=== PATIENT | female | born 1960 | race Caucasian/White ===

== ENCOUNTER 2022-10-25 09:13 | Outpatient (CLI) | payer MEDICARE, SELFPAY ==
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
[2022-10-25 09:33] LABS: Estimated Glomerular Filt Rate > 60
== END 2022-10-25 09:14 | disposition home or self-care (01) ==
LOC: ANHIMG 09:16
PROVIDERS: PCP Internal Medicine; Visit Provider Nurse Practitioner Family
DX: R10.9 Unspecified abdominal pain (principal)
CPT/HCPCS: 74177; Q9967

== ENCOUNTER 2023-03-26 06:43 | Day surgery (SDC) | payer MEDICARE, SELFPAY ==
[2023-03-06 14:10] VITALS: BMI 23.9
--- NOTE | 2023-03-08 12:05 | SUR.PREOP ---
On 10/15 pt was in ER at [facility] for chest pain. ER work up showed positive troponins but EKG was not significantly abnormal. Pt underwent cardiac cath which showed no significant CAD, minimal plaquing, EF normal, suspected coronary spasm or embolus which may have resolved per notes from Dr. Roberts's office. Pt was put on plavix and Ranolazine at the time of incident. Pt reports was taken off Ranolazine due to not having chest pain and is still currently on plavix. Pt reports no chest pain or symptoms since incident to this RN. This information was relayed to Dr. Saldana during pre-op interview process for upcoming EGD/Colonoscopy. Per Dr. Saldana, okay for pt to have procedure at [facility] and no further pre-op testing needs to be performed.
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
[2023-03-26 08:12] VITALS: BP 117/75; PULSE 88; RESP 16; TEMP 36.9; O2SAT 98
[2023-03-26] MEDS: LACTATED RINGERS 1,000 ML 150 ML IV CONT (08:14)
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
[2023-03-26 09:02] VITALS: BP 125/72; PULSE 87; RESP 16; O2SAT 100
--- NOTE | 2023-03-26 09:05 | SUR.OPER ---
No specimen retrieved from colon. aware.
[2023-03-26 09:12] VITALS: BP 122/66; PULSE 73; RESP 16; O2SAT 100
[2023-03-26 09:22] VITALS: BP 123/62; PULSE 68; RESP 16; O2SAT 100
--- NOTE | 2023-03-26 09:23 | WPDANESPN ---
Anes - Prog Note Post-Op Date/Time: 03/26/23 09:23 Cardiovascular status: normal Respiratory status: normal Airway patency: baseline Mental status: baseline Post-Op hydration status: normal Vital Signs: Last Vital Signs Temp 36.9 C 03/26/23 08:12 Pulse 73 03/26/23 09:12 Resp 16 03/26/23 09:12 BP 122/66 03/26/23 09:12 Pulse Ox 100 03/26/23 09:12 O2 Del Method Room Air 03/26/23 09:12 Pain Score (VAS): 0 I/O: Intake & Output 03/25/23 03/26/23 03/26/23 23:59 07:59 15:59 Intake Total 300 Balance 300 Patient Feedback: Patient satisfied with anesthetic care.
--- NOTE | 2023-03-26 09:38 | SUR.PHASEII ---
SPOKE WITH DR HERNANDEZ, PT MAY RESUME PLAVIX TOMORROW. PT MADE AWARE.
== END 2023-03-26 09:50 | disposition home or self-care (01) ==
PROVIDERS: PCP Internal Medicine; Visit Provider Internal Medicine Gastroenterology
PROC: 0DJ08ZZ Inspection of Upper Intestinal Tract, Via Natural or Artificial Opening Endoscopic (ICD-10-PCS; CPT 43235; principal; 2023-03-26 08:30)
PROC: 0DJD8ZZ Inspection of Lower Intestinal Tract, Via Natural or Artificial Opening Endoscopic (ICD-10-PCS; CPT 45378; 2023-03-26 08:30)
DX: Z12.11 Encounter for screening for malignant neoplasm of colon (principal); D12.3 Benign neoplasm of transverse colon; K57.30 Diverticulosis of large intestine without perforation or abscess without bleeding; K64.8 Other hemorrhoids; K21.9 Gastro-esophageal reflux disease without esophagitis; R11.0 Nausea; K44.9 Diaphragmatic hernia without obstruction or gangrene
CPT/HCPCS: 45385; 43239

== ENCOUNTER 2023-03-26 07:00 | Outpatient (NON) | payer MEDICARE, SELFPAY | END 2023-03-26 07:01 | disposition home or self-care (01) | PROVIDERS: PCP Internal Medicine; Visit Provider Internal Medicine Gastroenterology | DX: K29.70 Gastritis, unspecified, without bleeding (principal); R11.2 Nausea with vomiting, unspecified | CPT/HCPCS: 88305 ==

== ENCOUNTER 2024-11-28 08:03 | Outpatient (CLI) | payer MEDICARE, SELFPAY ==
--- NOTE | ~2024-11-28 | MM_ITS ---
EXAMINATION: MM screening gil BI w elizabeth HISTORY: Screening TECHNIQUE: Craniocaudal and mediolateral oblique 3-D tomosynthesis images were obtained and synthetic 2-D images were generated. CAD analysis was submitted and interpreted. COMPARISON: 06/21/2017 and 02/10/2008. BREAST PARENCHYMAL COMPOSITION: Breast composed of scattered areas of fibroglandular density. FINDINGS: There is no evidence of suspicious mass, calcification, or architectural distortion to sugg est malignancy in either breast. There has been no suspicious interval change. IMPRESSION: 1. No mammographic evidence of malignancy. 2. Recommend routine screening mammography in one year. BI-RADS Category 1: Negative Reviewed, dictated and finalized at location B.
--- OUTSIDE RECORDS SUMMARY | 2024-11-28 08:06 | XMS_ITS | Clinical Summary ---
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 Active oxyCODONE-acetam inophen (PERCOCET) 5-325 mg per tabletIndication s:Pain Take 1 tablet by mouth every 8 (eight) hours as needed for pain Active rosuvastatin (CRESTOR) 20 mg tablet Take 1 tablet (20 mg total) by mouth daily Active citalopram (CeleXA) 10 mg tablet Take 1 tablet (10 mg total) by mouth daily Active aspirin 81 mg chewable tablet Take 1 tablet (81 mg total) by mouth daily 30 tablet 11 3 Active isosorbide mononitrate ER (IMDUR) 30 mg 24 hr tablet Take 1 tablet (30 mg total) by mouth daily 30 tablet 3 Active Active Problems Problem Noted Date Diagnosed Date Elevated troponin 10/03/2022 Overview (10/03/2022): Added automatically from request for surgery [id number] NSTEMI (non-ST elevated myocardial infarction) 0 10/03/2022 Medical History Medical History Date Comments Never smoked any substance Social History Tobacco Use Types Packs/Day Years Used Date Smoking Tobacco: Never Smokeless Tobacco: Never Tobacco Cessation:Counseling Given: Not Answered Personal Safety Answer Date Recorded Getting School Help Needed Not on file 10/03 Comments Unknown Sex and Gender Information Value Date Recorded Sex Assigned at Not on file Legal Sex Female 6:16 PM CDT Gender Identity Not on file Sexual Orientation Not on file Obstetrics History Last Filed Vital Signs Vital Sign Reading Time Taken Comments Blood Pressure 111/69 10/04/2022 12:20 PM CDT Pulse 81 10/04/2022 12:20 PM CDT Temperature 36.8 C (98.3 F) 10/04/2022 12:20 PM CDT Respiratory Rate 18 10/04/2022 12:20 PM CDT Oxygen Saturation 95% 10/04/2022 12:20 PM CDT Inhaled Oxygen Concentration - - Weight 59.4 kg (131 lb) 10/03/2022 8:00 PM CDT Height 160 cm (5' 2.99) 10/03/2022 8:00 PM CDT Body Mass Index 23.21 10/03/2022 8:00 PM CDT Plan of Treatment Health Maintenance Due Date Last Done Comments Breast Cancer Screening-Mammogram 1961 Cervical Cancer Screening 1961 Colon Cancer Screening-Colonoscopy 1961 Depression Screening 1961 Hepatitis C Screening 1961 Hepatitis B Screening 1979 Regular Well Visit/Exam 18-64 1979 Zoster Vaccine (1 of 2) 2011 Covid-19 Vaccine (3 - 2023-2 5 season) 2024 06/11/2021, 05/05/2021 Influenza Vaccine (Season Ended) 2025 DTaP/Tdap/Td Vaccine (2 - Td or Tdap) 03/21/2027 03/21/2017 Pneumococcal vaccine <65 Aged Out No longer eligible based on patient's age to complete this topic Medical Devices Implanted Type Area Customer Sales Representative Device Identifier Shelf Expiration Date Model / Serial / Lot Revision [employer] Mynxgrip 6-7fr Balloon Catheter Integrate Sealant Lock Latex Free [id number] - [id number] Implanted:Qty: 1 on 10/03/2022 by Amaury Byrne MD at [facility] 05/24/2024 [id number] / / [id number] Insurance MEDICARE ADVANTAGE [facility] MEDICARE Address: [place] [address] MEDICARE ADVANTAGE [facility] MEDICARE Address: [place] [address] MEDICARE ADVANTAGE Advance Directives For more information, please contact: [phone] * Full Code (Latest Code Status on File) Date Activated Date Inactivated Comments 10/03/2022 3:37 PM 10/04/2022 9:08 PM * Full Code Date Activated Date Inactivated Comments 10/03/2022 2:12 PM 10/03/2022 3:37 PM Care Teams Emergency Management Director Relationship Specialty Start Date End Date Snoido Dunn MD [address] [facility] [place] [place] [address] PCP - General Internal Medicine 10/04/22 Amaury Byrne MD [address] [place] [address] Consulting Physician Cardiovascular Disease 10/04/22
--- OUTSIDE RECORDS SUMMARY | 2024-11-28 08:06 | XMS_ITS | Referral Summary ---
Author Organization [facility] Address [address] [address] Care Team Providers Care System Developer Associate Manager Name Role Phone Amaury Byrne MD Unavailable Sonido Dunn MD Primary Care Provider Allergies Active Allergy Reactions Criticality Noted Date Comments Pregabalin Vision changes Medium 10/03/2022 Gabapentin Hallucinations Medium 10/03/2022 Medications levothyroxine (SYNTHROID) 175 mcg tablet Take 1 tablet (175 mcg total) by mouth rn office before breakfast Active oxyCODONE-acetam inophen (PERCOCET) 5-325 [...] (10/03/2022): Added automatically from request for surgery [id number] NSTEMI (non-ST elevated myocardial infarction) 0 10/03/2022 Social History Tobacco Use Types Packs/Day Years [...] on file Sexual Orientation Not on file Last Filed Vital Signs Vital Sign Reading [...] 10/03/2022 8:00 PM CDT Plan of Treatment Not on file Medical Devices Implanted Type Area Workshop Manager Device Identifier Shelf Expiration Date Model / Serial / Lot [facility] Mynxgrip 6-7fr Balloon Catheter Integrate Sealant Lock Latex Free [id number] - [id number] Implanted:Qty: 1 on 10/03/2022 by Amaury Byrne MD at [facility] 05/24/2024 [id number] / / [id number] Insurance [facility] MEDICARE ADVANTAGE [facility] MEDICARE ADVANTAGE Advance Directives For more information, please contact: [phone] * Full Code (Latest Code Status on File) Date Activated Date Inactivated Comments 10/03/2022 3:37 PM 10/04/2022 9:08 PM * Full Code Date Activated Date Inactivated Comments 10/03/2022 2:12 PM 10/03/2022 3:37 PM Care Teams System Developer Associate Manager Relationship Specialty Start Date End Date Sonido Dunn MD [address] [facility] [address] [place] [address] PCP - General Internal Medicine 10/04/22 Amaury Byrne MD [address] [place] [address] Consulting Physician Cardiovascular Disease 10/04/22
--- OUTSIDE RECORDS SUMMARY | 2024-11-28 08:06 | XMS_ITS | CONTINUITY OF CARE DOCUMENT ---
Author Name elvin oconnor Address Unknown Organization [facility] Address [address] [address] [place] [address] Phone [phone] Care Team Providers Care Computer Clerk Name Role Phone Armando GOODRICH, Lizbeth Unavailable RAIMUNDO ARSHAD MD Unavailable RAIMUNDO ARSHAD MD Unavailable [phone] PROBLEMS Condition Status Date Provider Notes NSTEMI--[place]- cath no sig. CAD 09/2022 active 10/24 Lizbeth Roberts MD Chest pain active Lizbeth Roberts MD Hyperlipidemia active Lizbeth Roberts MD GERD active Lizbeth Roberts MD Hypothyroidism active Lizbeth Roberts MD Dizziness active Lizbeth Roberts MD Nausea active Lizbeth Roberts MD Leg cramp, left active Kendall Ahmedzai Headache active Kendall Ahmedzai ENCOUNTERS Date Type Provider Location Encounter Diag nosis - In-person encounter Office Visit Lizbeth Roberts MD [place] - In-person encounter Office Visit Lizbeth Roberts MD [facility] Leg cramp, leftHeadache - In-person encounter Office Visit Lizbeth Roberts MD [place] - In-person encounter Office Visit Lizbeth Roberts MD [place] DizzinessNausea - In-person encounter Office Visit Lizbeth Roberts MD [place] NSTEMI--[place]- cath no sig. CAD hest painHyperlipidemiaGERDHypothyroidism VITAL SIGNS Date Observation Value Provider Body Mass Index (Ratio) 23.38 kg/m2 Will nevaehmelissa JonesMarlin pulse rate 87 /min Shy waterman blood pressure, cuff size regular Br chrissy Oden blood pressure, diastolic 80 mm[Hg] Br chrissy Oden blood pressure, systolic 125 mm[Hg] Floridalma Oden oxygen saturation, oximetry 97 % Shy Oden weight E&M 132 [lb_av] Shy Gill s height E&M 63 [in_i] Shy Gill s Body Mass Index (Ratio) 23.20 kg/m2 [facility] ntha Cranmer blood pressure, diastolic -1 mm[Hg] Li nkLogic blood pressure, systolic 99 mm[Hg] Sima kLogic blood pressure, diastolic 66 mm[Hg] Va lerie Lawson blood pressure, systolic 99 mm[Hg] Brittney sandhya Lawson respiratory rate E&M 12 /min Shahrzad Lawson weight E&M 131 [lb_av] Shahrzad Lawson pulse rate 97 /min Shahrzad Lawson oxygen saturation, oximetry 96 % Shahrzad Lawson blood pressure, cuff size regular Va lerie Lawson height E&M 63 [in_i] Shahrzad Lawson Body Mass Index (Ratio) 24.27 kg/m2 [facility] ntha Cranmer blood pressure, cuff size regular Fa avery Flores blood pressure, diastolic 98 mm[Hg] Alpa Flores blood pressure, systolic 110 mm[Hg] Amandeep [facility] pulse rate 99 /min Esther Ponca oxygen saturation, oximetry 98 % [facility] respiratory rate E&M 6 /min Esther de souza weight E&M 137 [lb_av] Esther Ponca height E&M 63 [in_i] Esther Ponca Body Mass Index (Ratio) 24.27 kg/m2 Dave ga Kiran blood pressure, diastolic 40 mm[Hg] Ave acuna Andrae blood pressure, systolic 118 mm[Hg] Any cydney Andrae pulse rate 80 /min Bridget Andrae weight E&M 137 [lb_av] Bridget Andrae height E&M 63 [in_i] Bridget Andrae blood pressure, cuff size large An armand Andrae oxygen saturation, oximetry 96 % Bridget Andrae Body Mass Index (Ratio) 23.03 kg/m2 Kendall Smithclement blood pressure, cuff size regular Ke rri Andrea blood pressure, diastolic 72 mm[Hg] Ke rri Andrea blood pressure, systolic 112 mm[Hg] Jorge Mendez oxygen saturation, oximetry 98 % Michelle Mendez respiratory rate E&M 12 /min Michelle puente pulse rate 95 /min Michelle Escobedo lder weight E&M 130 [lb_av] Michelle Escobedo lder height E&M 63 [in_i] Michelle Escobedo lder ALLERGIES Allergy Name Onset Date Reaction Criticality Status NEURONTIN High Criticality active LYRICA High Criticality active HISTORY OF MEDICATION USE Medication Status Instructions Dates Provider Indications Com ments buspirone 5 mg tablet active TAKE 1 TABLET BY MOUTH TWICE DAILY 1 Kendall Quinteros amlodipine 2.5 mg tablet active TAKE 1 TABLET BY MOUTH DAILY 6 Kendall Quinteros buspirone 5 mg tablet completed - 1 Love Leos amlodipine 5 mg tablet completed one pill once daily - 6 Kendall Quinteros Aspirin Childrens 81 mg tablet,chewable active one pill once daily Shahrzad Lawson buspirone 5 mg tablet completed Take 1 tablet by mouth twice a day 6 - 6 Shahrzad Lawson meclizine 25 mg tablet completed Take 1 tablet by mouth three times a day as needed 8 - 6 Shahrzad Lawson ranolazine 500 mg tablet extended release 12 hr completed TAKE 1 TABLET BY MOUTH TWICE A DAY - 8 Kendall Quinteros dicyclomine 20 mg tablet active as needed Shahrzad Lawson rosuvastatin 20 mg tablet active one pill once daily Shahrzad Lawson isosorbide mononitrate 30 mg tablet extended release 24 hr completed - 2 Kendall Quinteros citalopram 10 mg tablet completed TAKE 1 TABLET BY MOUTH EVERY DAY - 6 Esther Flores omeprazole 40 mg capsule,delayed release(DR/EC) active one pill once daily Shahrzad Lawson amlodipine 5 mg tablet completed TAKE 1 TABLET BY MOUTH DAILY - 6 Shahrzad Lawson clopidogrel 75 mg tablet completed TAKE 1 TABLET BY MOUTH EVERY DAY - 6 Shahrzad Lawson levothyroxine 150 mcg tablet active one pill once daily Shahrzad Lawson SOCIAL HISTORY Date Observation Value Provider smoking status Never smoker Kendall Quinteros smoking status Never smoker Kendall Quinteros smoking status Never smoker Kendall Quinteros smoking status Never smoker Bridget Abebe social history reviewed E&M revi ewed - no changes required Kendall Quinteros smoking status Never smoker Michelle puri social history reviewed E&M revi ewed - no changes required Kendall Ahmedzai FUNCTIONAL STATUS Date Observation Value Provider HRA, CV Assess/Plan, Angina (inactive) Management Plan continue current therapy Kendall Ahmedzai HRA, CV Assess/Plan, Angina (inactive) Management Plan continue current therapy Kendall Ahmedzai HRA, CV Assess/Plan, Angina (inactive) Management Plan continue current therapy Kendall Ahmedzai HRA, CV Assess/Plan, Angina (inactive) Management Plan continue current therapy Kendall Ahmedzai INSURANCE PROVIDERS Payer name Policy type / Coverage type [place] [employer] [employer] [facility] [facility] ADVANTAGE PLAN 2 (HMO-POS) Medicare [id number] ADVANCE DIRECTIVES Name Date DISCUSSED - NO DECISION MADE TREATMENT PLAN Date Name Performer [id number],S, Kendall Ahmedza i [id number],S, Kendall Ahmedza i [id number],S, Kendall Ahmedza i [id number],S, Kendall Ahmedza i [id number],S, Kendall Ahmedza i [id number],B, Kendall Ahmedza i [id number],S, Kendall Ahmedza i [id number],S, Kendall Ahmedza i [id number],S, Kendall Ahmedza i [id number],S, Kendall Ahmedza i [id number],S, Kendall Ahmedza i Cardiology: O rders: C omplete Echo ([id number]) Lizbeth Roberts MD Cardiology: H er updated medication list for this problem includes: Rosuvastatin 20 Mg Tablet (Rosuvastatin) ..... One pill once daily Lizbeth Roberts MD Cardiology: H er updated medication list for this problem includes: Levothyroxine 150 Mcg Tablet (Levothyroxine) ..... One pill once daily Lizbeth Roberts MD Cardiology:This visi t has been a part of the consistent, comprehensive, and ongoing management of the chronic medical condition(s) listed above for the patient. Orders: C omplete Echo ([id number]) Lizbeth Roberts MD Cardiology:This visi t has been a part of the consistent, comprehensive, and ongoing management of the chronic medical condition(s) listed above for the patient. Lizbeth Roberts MD Cardiology: H er updated medication list for this problem includes: Aspirin Childrens 81 Mg Tablet,chewable (Aspirin) ..... One pill once daily Kendall Quinteros Cardiology:hold statin and monit or sxs Kendall Quinteros Cardiology Kendall Quinteros Cardiology: H er updated medication list for this problem includes: Rosuvastatin 20 Mg Tablet (Rosuvastatin) ..... One pill once daily Kendall Quinteros Cardiology Kendall Quinteros Cardiology: H er updated medication list for this problem includes: Levothyroxine 150 Mcg Tablet (Levothyroxine) ..... One pill once daily Kendall Quinteros Cardiology Kendall Quinteros Cardiology Kendall Quinteros Cardiology Kendall Quinteros Cardiology: H er updated medication list for this problem includes: Dicyclomine 20 Mg Tablet (Dicyclomine) Omeprazole 40 Mg Capsule,delayed Release(dr/ec) (Omeprazole) Kendall Quinteros Cardiology: H er updated medication list for this problem includes: Levothyroxine 175 Mcg Tablet (Levothyroxine) Kendall Quinteros Cardiology: H er updated medication list for this problem includes: Rosuvastatin 20 Mg Tablet (Rosuvastatin) Kendall Marsi Cardiology Kendall Ahmedzai Cardiology Kendall Ahmedzai Cardiology Kendall Ahmedzai Cardiology Kendall Ahmedzai Cardiology Kendall Ahmedzai Cardiology Kendall Ahmedzai Cardiology Kendall Ahmedzai Cardiology Kendall Ahmedzai Cardiology Kendall Ahmedzai Cardiology Kendall Ahmedzai Cardiology Kendall Ahmedzai Cardiology Kendall Ahmedzai Date Name Complete Echo HISTORY OF PROCEDURES Procedure Date Procedure Name Provider Procedure Notes S tatus Complex e/m visit add on Lizbeth Roberts MD completed Complex e/m visit add on Lizbeth Roberts MD completed EKG Lizbeth Roberts MD completed EKG Lizbeth Roberts MD completed
--- OUTSIDE RECORDS SUMMARY | 2024-11-28 08:07 | XMS_ITS | Data Portability ---
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 ng/mL Not Available [facility] (Lab) [address] [place], [address], 08/31/2023 13:22:51 08/31/19 24 08/31/2023 URINE DRUG SCREE N benzodiazepi burt NEGATI VE Benzo diaze pine cut off 200 ng/mL Not Available [facility] (Lab) [address] [place], [address], 08/31/2023 13:22:51 08/31/19 24 08/31/2023 URINE DRUG SCREE N cocaine NEGATI VE Cocai ne metab olite cut off 150 ng/mL Not Available [facility] (Lab) [address] [place], [address], 08/31/2023 13:22:51 08/31/19 24 08/31/2023 URINE DRUG SCREE N fentanyl NEGATI VE Fenta nyl cut off 1.0 ng/mL Not Available [facility] (Lab) [address] [place], [address], 08/31/2023 13:22:51 08/31/19 24 08/31/2023 URINE DRUG SCREE N methadone NEGATI VE Metha done cutof f 300 ng/mL . Not Available [facility] (Lab) [address] [place], [address], 08/31/2023 13:22:51 08/31/19 24 08/31/2023 URINE DRUG SCREE N opiates NEGATI VE Opiat e cut off 300 ng/mL Not Available [facility] (Lab) [address] [place], [address], 08/31/2023 13:22:51 08/31/19 24 08/31/2023 URINE DRUG SCREE N oxycodone POSITI VE abnormal Oxyco done cut off 100 ng/mL Not Available [facility] (Lab) [address] [place], [address], 08/31/2023 13:22:51 08/31/19 24 08/31/2023 URINE DRUG SCREE N phencyclidin e NEGATI VE PCP cut off 25 ng/mL Not Available [facility] (Lab) [address] [place], [address], 08/31/2023 13:22:51 08/31/19 24 08/31/2023 URINE DRUG SCREE N marijuana POSITI VE abnormal Marij uana cut off 50 ng/mL ANY POSIT LALITHA RESUL TS REPOR SRINI ARE UNCON FIRME D, AND SUCH, SHOUL D BE USED FOR MEDIC AL TREAT MENT PURPO SES ONLY. Not Available [facility] (Lab) [address] [place], [address], 08/31/2023 13:22:51 08/31/19 24 08/31/2023 T4 FREE free T4 1.41 NG/dL 0.78-2 .19 Not Available [facility] (Lab) [address] [place], [address], 08/31/2023 13:27:56 08/31/19 24 08/31/2023 COMPR EHENS LALITHA METAB OLIC PANEL sodium 140 mmol/ L 137-14 5 Not Available [facility] (Lab) [address] [place], [address], 08/31/2023 13:31:11 08/31/19 24 08/31/2023 COMPR EHENS LALITHA METAB OLIC PANEL potassium 4.1 mmol/ L 3.5-5. 1 Not Available [facility] (Lab) [address] [place], [address], 08/31/2023 13:31:11 08/31/19 24 08/31/2023 COMPR EHENS LALITHA METAB OLIC PANEL chloride 108 mmol/ L 98-107 high Not Available [facility] (Lab) [address] [place], [address], 08/31/2023 13:31:11 08/31/19 24 08/31/2023 COMPR EHENS LALITHA METAB OLIC PANEL carbon dioxide 27 mmol/ L 22-30 Not Available [facility] (Lab) [address] [place], [address], 08/31/2023 13:31:11 08/31/19 24 08/31/2023 COMPR EHENS LALITHA METAB OLIC PANEL anion gap 9.1 mmol/ L 14-22 low Not Available [facility] (Lab) [address] [place], [address], 08/31/2023 13:31:11 08/31/19 24 08/31/2023 COMPR EHENS LALITHA METAB OLIC PANEL glucose 94 mg/dL 70-99 Not Available [facility] (Lab) [address] [place], [address], 08/31/2023 13:31:11 08/31/19 24 08/31/2023 COMPR EHENS LALITHA METAB OLIC PANEL BUN 17 mg/dL 8-19 Not Available [facility] (Lab) [address] [place], [address], 08/31/2023 13:31:11 08/31/19 24 08/31/2023 COMPR EHENS LALITHA METAB OLIC PANEL creatinine 0.57 mg/dL 0.66-1 .25 low Not Available [facility] (Lab) [address] [place], [address], 08/31/2023 13:31:11 08/31/19 24 08/31/2023 COMPR EHENS LALITHA METAB OLIC PANEL GFR >60 Refer ence Range : [place] GFR Healt hy Adult : >60 mL/mi n/1.7 3 m2 Chron ic Kidne y Disea se: 15-60 mL/mi n/1.7 3 m2 Kidne y Failu re: <15/m L/min /1.73 m2 www.n iddk. nih.g ov The MDRD study equat ion has not been valid ated in child meir <18 years of age; pregn ant women ; the elder ly >85 years of age; or in some racia l or ethni c subgr oups, such as Hispa nics. Outsi de the valid ated colin eters , estim ated GFR is less accur ate, requi ring clini suzie judgm ent on a case- by-ca se basis . Clini suzie inter preta tion for other races and ages must be made by the clini noa. The MDRD study equat ion has not been valid ated for the evalu ation of serum creat inine relat ed to nutri shireen l statu s or medic ation usage . For perso ns <18 years of age, a pedia tric GFR calcu lator is avail able on the [facility] websi te: https ://edil w.elisabet ayers.o rg/pr marisoless brettal s/kdo qi/gf r_cal culat or Not Available [facility] (Lab) [address] [place], [address], 08/31/2023 13:31:11 08/31/19 24 08/31/2023 COMPR EHENS LALITHA METAB OLIC PANEL alkaline phosphatase 93 U/L 38-126 Not Available [facility] (Lab) [address] [place], [address], 08/31/2023 13:31:11 08/31/19 24 08/31/2023 COMPR EHENS LALITHA METAB OLIC PANEL alanine aminotransfe rase 24 U/L 0-35 Not Available [facility] (Lab) [address] [place], [address], 08/31/2023 13:31:11 08/31/19 24 08/31/2023 COMPR EHENS LALITHA METAB OLIC PANEL aspartate aminotransfe rase 33 U/L 15-37 Not Available [facility] (Lab) [address] [place], [address], 08/31/2023 13:31:11 08/31/19 24 08/31/2023 COMPR EHENS LALITHA METAB OLIC PANEL bilirubin, total 0.50 mg/dL 0.20-1 .30 Not Available [facility] (Lab) [address] [place], [address], 08/31/2023 13:31:11 08/31/19 24 08/31/2023 COMPR EHENS LALITHA METAB OLIC PANEL calcium 9.7 mg/dL 8.4-10 .2 Not Available [facility] (Lab) [address] [place], [address], 08/31/2023 13:31:11 08/31/19 24 08/31/2023 COMPR EHENS LALITHA METAB OLIC PANEL total protein 6.5 g/dL 6.3-8. 2 Not Available [facility] (Lab) [address] [place], [address], 08/31/2023 13:31:11 08/31/19 24 08/31/2023 COMPR EHENS LALITHA METAB OLIC PANEL albumin 4.1 g/dL 3.4-5. 0 Not Available [facility] (Lab) [address] [place], [address], 08/31/2023 13:31:11 03/08/08/31/2023 COMPR EHENS LALITHA METAB OLIC PANEL globulin 2.4 g/dL 2.6-4. 2 low Not Available [facility] (Lab) [address] [place], [address], 08/31/2023 13:31:11 08/31/19 24 08/31/2023 COMPR EHENS LALITHA METAB OLIC PANEL A/G ratio 1.7 ratio 1.0-2. 0 Not Available [facility] (Lab) [address] [place], [address], 08/31/2023 13:31:11 08/31/19 24 08/31/2023 LIPID PANEL cholesterol 130 mg/dL 140-19 9 low NIH BALTAZAR NSUS RECOM MENDA TION FOR MINI STERO L: ADULT CHILD LOW RISK: <200 <170 BORDE RLINE : <200- 239 ----- HIGH RISK: >240 >200 Not Available [facility] (Lab) [address] [place], [address], 08/31/2023 13:31:14 08/31/19 24 08/31/2023 LIPID PANEL triglyceride s 83 mg/dL 0-150 NIH BALTAZAR NSUS REPOR T RECOM MENDA TION FOR TRIGL YCERI SUZIE: ADULT CHILD LOW RISK: <150 ----- BODER LINE: 150-1 99 ----- HIGH RISK: >200 ----- Not Available [facility] (Lab) [address] [place], [address], 08/31/2023 13:31:14 08/31/19 24 08/31/2023 LIPID PANEL HDL cholesterol 59 mg/dL 40- Not Available [facility] (Lab) [address] [place], [address], 08/31/2023 13:31:14 08/31/19 24 08/31/2023 LIPID PANEL LDL cholesterol, calculated 54 mg/dL 0-130 NIH BALTAZAR NSUS REPOR T RECOM MENDA TIONS FOR LDL: ADULT CHILD LOW RISK <130 <110 (OPTI MAL LDL) <100 ----- BORDE RLINE : 130-1 59 ----- HIGH RISK: >160 >130 A TRIGL YCERI DE RESUL T >400 INVAL IDATE S THE CALCU LATIO N FOR LDL FRACT IONAT ION - THE LDL RESUL T WILL NOT BE REPOR SRINI. Not Available [facility] (Lab) [address] [place], [address], 08/31/2023 13:31:14 08/31/19 24 08/31/2023 TSH thyroid-stim ulating hormone <0.015 uIU/m L 0.465- 4.680 low Not Available [facility] (Lab) [address] [place], [address], 08/31/2023 13:39:41 03/21/20 24 03/21/2024 CREAT INE KINAS E/CPK TOTAL creatine kinase 93 U/L 30-135 Not Available [facility] (Lab) [address] [place], [address], 03/21/2024 12:12:08 03/21/20 24 03/21/2024 LIPID PANEL cholesterol 287 mg/dL 140-19 9 high NIH BALTAZAR NSUS RECOM MENDA TION FOR MINI STERO L: ADULT CHILD LOW RISK: <200 <170 BORDE RLINE : <200- 239 ----- HIGH RISK: >240 >200 Not Available [facility] (Lab) [address] [place], [address], 03/21/2024 12:12:19 03/21/20 24 03/21/2024 LIPID PANEL triglyceride s 131 mg/dL 0-150 NIH BALTAZAR NSUS REPOR T RECOM MENDA TION FOR TRIGL YCERI SUZIE: ADULT CHILD LOW RISK: <150 ----- BODER LINE: 150-1 99 ----- HIGH RISK: >200 ----- Not Available [facility] (Lab) [address] [place], [address], 03/21/2024 12:12:19 03/21/20 24 03/21/2024 LIPID PANEL HDL cholesterol 61 mg/dL 40- Not Available [facility] (Lab) [address] [place], [address], 03/21/2024 12:12:19 03/21/20 24 03/21/2024 LIPID PANEL LDL cholesterol, calculated 200 mg/dL 0-130 high NIH BALTAZAR NSUS REPOR T RECOM MENDA TIONS FOR LDL: ADULT CHILD LOW RISK <130 <110 (OPTI MAL LDL) <100 ----- BORDE RLINE : 130-1 59 ----- HIGH RISK: >160 >130 A TRIGL YCERI DE RESUL T >400 INVAL IDATE S THE CALCU LATIO N FOR LDL FRACT IONAT ION - THE LDL RESUL T WILL NOT BE REPOR SRINI. Not Available [facility] (Lab) [address] [place], [address], 03/21/2024 12:12:19 03/21/20 24 03/21/2024 COMPR EHENS LALITHA METAB OLIC PANEL sodium 139 mmol/ L 137-14 5 Not Available [facility] (Lab) [address] [place], [address], 03/21/2024 12:12:28 03/21/20 24 03/21/2024 COMPR EHENS LALITHA METAB OLIC PANEL potassium 4.0 mmol/ L 3.5-5. 1 Not Available [facility] (Lab) [address] [place], [address], 03/21/2024 12:12:28 03/21/20 24 03/21/2024 COMPR EHENS LALITHA METAB OLIC PANEL chloride 110 mmol/ L 98-107 high Not Available [facility] (Lab) [address] [place], [address], 03/21/2024 12:12:28 03/21/20 24 03/21/2024 COMPR EHENS LALITHA METAB OLIC PANEL carbon dioxide 25 mmol/ L 22-30 Not Available [facility] (Lab) [address] [place], [address], 03/21/2024 12:12:28 03/21/20 24 03/21/2024 COMPR EHENS LALITHA METAB OLIC PANEL anion gap 8.0 mmol/ L 14-22 low Not Available [facility] (Lab) [address] [place], [address], 03/21/2024 12:12:28 03/21/20 24 03/21/2024 COMPR EHENS LALITHA METAB OLIC PANEL glucose 99 mg/dL 70-99 Not Available [facility] (Lab) [address] [place], [address], 03/21/2024 12:12:28 03/21/20 24 03/21/2024 COMPR EHENS LALITHA METAB OLIC PANEL BUN 16 mg/dL 8-19 Not Available [facility] (Lab) [address] [place], [address], 03/21/2024 12:12:28 03/21/20 24 03/21/2024 COMPR EHENS LALITHA METAB OLIC PANEL creatinine 0.66 mg/dL 0.66-1 .25 Not Available [facility] (Lab) [address] [place], [address], 03/21/2024 12:12:28 03/21/20 24 03/21/2024 COMPR EHENS LALITHA METAB OLIC PANEL GFR >60 Refer ence Range : [place] GFR Healt hy Adult : >60 mL/mi n/1.7 3 m2 Chron ic Kidne y Disea se: 15-60 mL/mi n/1.7 3 m2 Kidne y Failu re: <15/m L/min /1.73 m2 www.n iddk. nih.g ov The MDRD study equat ion has not been valid ated in child meir <18 years of age; pregn ant women ; the elder ly >85 years of age; or in some racia l or ethni c subgr oups, such as Hispa nics. Outsi de the valid ated colin eters , estim ated GFR is less accur ate, requi ring clini suzie judgm ent on a case- by-ca se basis . Clini suzie inter preta tion for other races and ages must be made by the clini noa. The MDRD study equat ion has not been valid ated for the evalu ation of serum creat inine relat ed to nutri shireen l statu s or medic ation usage . For perso ns <18 years of age, a pedia tric GFR calcu lator is avail able on the [facility] websi te: https ://edil w.elisabet ayers.o rg/pr ofess ional s/kdo qi/gf r_cal culat or Not Available [facility] (Lab) [address] [place], [address], 03/21/2024 12:12:28 03/21/20 24 03/21/2024 COMPR EHENS LALITHA METAB OLIC PANEL alkaline phosphatase 101 U/L 38-126 Not Available [facility] (Lab) [address] [place], [address], 03/21/2024 12:12:28 03/21/20 24 03/21/2024 COMPR EHENS LALITHA METAB OLIC PANEL alanine aminotransfe rase 30 U/L 0-35 Not Available [facility] (Lab) [address] [place], [address], 03/21/2024 12:12:28 03/21/20 24 03/21/2024 COMPR EHENS LALITHA METAB OLIC PANEL aspartate aminotransfe rase 40 U/L 15-37 high Not Available [facility] (Lab) [address] [place], [address], 03/21/2024 12:12:28 03/21/20 24 03/21/2024 COMPR EHENS LALITHA METAB OLIC PANEL bilirubin, total 0.50 mg/dL 0.20-1 .30 Not Available [facility] (Lab) [address] [place], [address], 03/21/2024 12:12:28 03/21/20 24 03/21/2024 COMPR EHENS LALITHA METAB OLIC PANEL calcium 9.6 mg/dL 8.4-10 .2 Not Available [facility] (Lab) [address] [place], [address], 03/21/2024 12:12:28 03/21/20 24 03/21/2024 COMPR EHENS LALITHA METAB OLIC PANEL total protein 7.1 g/dL 6.3-8. 2 Not Available [facility] (Lab) [address] [place], [address], 03/21/2024 12:12:28 03/21/20 24 03/21/2024 COMPR EHENS LALITHA METAB OLIC PANEL albumin 4.4 g/dL 3.0-4. 4 Not Available [facility] (Lab) [address] [place], [address], 03/21/2024 12:12:28 03/21/20 24 03/21/2024 COMPR EHENS LALITHA METAB OLIC PANEL globulin 2.7 g/dL 2.6-4. 2 Not Available [facility] (Lab) [address] [place], [address], 03/21/2024 12:12:28 03/21/20 24 03/21/2024 COMPR EHENS LALITHA METAB OLIC PANEL A/G ratio 1.6 ratio 1.0-2. 0 Not Available [facility] (Lab) [address] [place], [address], 03/21/2024 12:12:28 03/21/20 24 03/21/2024 T4 FREE free T4 1.34 NG/dL 0.78-2 .19 Not Available [facility] (Lab) [address] [place], [address], 03/21/2024 12:32:40 03/21/20 24 03/21/2024 TSH thyroid-stim ulating hormone 0.088 uIU/m L 0.465- 4.680 low Not Available [facility] (Lab) [address] [place], [address], 03/21/2024 12:37:30 09/18/19 25 09/17/2024 LIPID PANEL , [place] cholesterol, total 166 mg/dL <200 normal Not Available [address] [address] [place], [address], 09/17/2024 21:39:15 09/18/19 25 09/17/2024 LIPID PANEL , [place] HDL cholesterol 66 mg/dL > or = 50 normal Not Available [facility] [address], [address], 09/17/2024 21:39:15 09/18/19 25 09/17/2024 LIPID PANEL , [place] triglyceride s 90 mg/dL <150 normal Not Available [facility] [address], [address], 09/17/2024 21:39:15 09/18/19 25 09/17/2024 LIPID PANEL , [place] LDL-choleste rol 82 mg/dL _(suzie c) normal Refer ence range : <100 Yassine able range <100 mg/dL for prima ry preve ntion ; <70 mg/dL for patie nts with CHD or diabe tic patie nts with > or = 2 CHD risk facto rs. LDL-C is now calcu lated using the Catrina farah-Hop gloria gloria n, which is a valid ated novel sameera davis than the Fried elba equat ion in the estim ation of LDL-C . Catrina farah SS et al. BETTY. 2013; 310(1 9): 2061- 2068 (http ://ed ucati on.Qu estDi [employer]. com/f aq/FA Q164) Not Available [address] [address] [place], [address], 09/17/2024 21:39:15 09/18/1909/17/2024 LIPID PANEL , [place] chol/HDLC ratio 2.5 (calc ) <5.0 normal Not Available [address], [address], 09/17/2024 21:39:15 09/18/1909/17/2024 LIPID PANEL , [place] non HDL cholesterol 100 mg/dL _(suzie c) <130 normal For patie nts with diabe francia plus 1 major ASCVD risk facto r, treat ing to a non-H DL-C goal of <100 mg/dL (LDL- C of <70 mg/dL ) is consi dered a thera peuti c optio n. Not Available [address], [address], 09/17/2024 21:39:15 09/18/1909/17/2024 COMPR EHENS LALITHA METAB OLIC PANEL glucose 98 mg/dL 65-99 normal Fasti ng refer ence inter lorrie Not Available [address], [address], 09/17/2024 21:39:16 09/18/1909/17/2024 COMPR EHENS LALITHA METAB OLIC PANEL urea nitrogen (BUN) 15 mg/dL 7-25 normal Not Available [address], [address], 09/17/2024 21:39:16 09/18/1909/17/2024 COMPR EHENS LALITHA METAB OLIC PANEL creatinine 0.63 mg/dL 0.50-1 .05 normal Not Available [address], [address], 09/17/2024 21:39:16 09/18/19 25 09/17/2024 COMPR EHENS LALITHA METAB OLIC PANEL eGFR 100 mL/mi n/1.7 3m2 > or = 60 normal Not Available [address], [address], 09/17/2024 21:39:16 09/18/19 25 09/17/2024 COMPR EHENS LALITHA METAB OLIC PANEL BUN/creatini ne ratio SEE NOTE: (calc ) 6-22 Not Repor srini: BUN and Creat inine are withi n refer ence range . Not Available [address], [address], 09/17/2024 21:39:16 09/18/19 25 09/17/2024 COMPR EHENS LALITHA METAB OLIC PANEL sodium 142 mmol/ L 135-14 6 normal Not Available [address], [address], 09/17/2024 21:39:16 09/18/19 25 09/17/2024 COMPR EHENS LALITHA METAB OLIC PANEL potassium 4.0 mmol/ L 3.5-5. 3 normal Not Available [address], [address], 09/17/2024 21:39:16 09/18/19 25 09/17/2024 COMPR EHENS LALITHA METAB OLIC PANEL chloride 105 mmol/ L 98-110 normal Not Available [address], [address], 09/17/2024 21:39:16 09/18/19 25 09/17/2024 COMPR EHENS LALITHA METAB OLIC PANEL carbon dioxide 29 mmol/ L 20-32 normal Not Available [address], [address], 09/17/2024 21:39:16 09/18/19 25 09/17/2024 COMPR EHENS LALITHA METAB OLIC PANEL calcium 9.8 mg/dL 8.6-10 .4 normal Not Available [address], [address], 09/17/2024 21:39:16 09/18/19 25 09/17/2024 COMPR EHENS LALITHA METAB OLIC PANEL protein, total 6.9 g/dL 6.1-8. 1 normal Not Available [address], [address], 09/17/2024 21:39:16 09/18/19 25 09/17/2024 COMPR EHENS LALITHA METAB OLIC PANEL albumin 4.6 g/dL 3.6-5. 1 normal Not Available [address], [address], 09/17/2024 21:39:16 09/18/19 25 09/17/2024 COMPR EHENS LALITHA METAB OLIC PANEL globulin 2.3 g/dL_ (calc ) 1.9-3. 7 normal Not Available [address], [address], 09/17/2024 21:39:16 09/18/19 25 09/17/2024 COMPR EHENS LALITHA METAB OLIC PANEL albumin/glob ulin ratio 2.0 (calc ) 1.0-2. 5 normal Not Available [address], [address], 09/17/2024 21:39:16 09/18/19 25 09/17/2024 COMPR EHENS LALITHA METAB OLIC PANEL bilirubin, total 0.4 mg/dL 0.2-1. 2 normal Not Available [address], [address], 09/17/2024 21:39:16 09/18/19 25 09/17/2024 COMPR EHENS LALITHA METAB OLIC PANEL alkaline phosphatase 88 U/L 37-153 normal Not Available [address], [address], 09/17/2024 21:39:16 09/18/19 25 09/17/2024 COMPR EHENS LALITHA METAB OLIC PANEL AST 24 U/L 10-35 normal Not Available [address], [address], 09/17/2024 21:39:16 09/18/19 25 09/17/2024 COMPR EHENS LALITHA METAB OLIC PANEL ALT 20 U/L 6-29 normal Not Available [address], [address], 09/17/2024 21:39:16 09/18/19 25 09/17/2024 CBC (INCL UDES DIFF/ PLT) white blood cell count 10.8 thous and/u L 3.8-10 .8 normal Not Available [address], [address], 09/17/2024 21:39:18 09/18/19 25 09/17/2024 CBC (INCL UDES DIFF/ PLT) red blood cell count 4.85 linda on/uL 3.80-5 .10 normal Not Available [address], [address], 09/17/2024 21:39:18 09/18/19 25 09/17/2024 CBC (INCL UDES DIFF/ PLT) hemoglobin 15.3 g/dL 11.7-1 5.5 normal Not Available [address], [address], 09/17/2024 21:39:18 09/18/19 25 09/17/2024 CBC (INCL UDES DIFF/ PLT) hematocrit 46.4 % 35.0-4 5.0 high Not Available [address], [address], 09/17/2024 21:39:18 09/18/19 09/17/2024 CBC (INCL UDES DIFF/ PLT) MCV 95.7 fL 80.0-1 00.0 normal Not Available [address], [address], 09/17/2024 21:39:18 09/18/1909/17/2024 CBC (INCL UDES DIFF/ PLT) MCH 31.5 pg 27.0-3 3.0 normal Not Available [address], [address], 09/17/2024 21:39:18 09/18/1909/17/2024 CBC (INCL UDES DIFF/ PLT) MCHC 33.0 g/dL 32.0-3 6.0 normal For adult s, a sligh t decre ase in the calcu lated MCHC value (in the range of 30 to 32 g/dL) is most likel y not clini lynn signi dexter t; jaky er, it shoul d be inter prete d with cauti on in [facility] n with other red cell colin eters and the patie nt's clini suzie condi tion. Not Available [address], [address], 09/17/2024 21:39:18 09/18/1909/17/2024 CBC (INCL UDES DIFF/ PLT) RDW 12.0 % 11.0-1 5.0 normal Not Available [address], [address], 09/17/2024 21:39:18 09/18/1909/17/2024 CBC (INCL UDES DIFF/ PLT) platelet count 333 thous and/u L 140-40 0 normal Not Available [address], [address], 09/17/2024 21:39:18 09/18/1909/17/2024 CBC (INCL UDES DIFF/ PLT) MPV 10.3 fL 7.5-12 .5 normal Not Available [address] [place], [address], 09/17/2024 21:39:18 09/18/19 25 09/17/2024 CBC (INCL UDES DIFF/ PLT) absolute neutrophils 8273 cells /uL 1500-7 800 high Not Available [address], [address], 09/17/2024 21:39:18 09/18/19 25 09/17/2024 CBC (INCL UDES DIFF/ PLT) absolute lymphocytes 1566 cells /uL 850-39 00 normal Not Available [address], [address], 09/17/2024 21:39:18 09/18/19 25 09/17/2024 CBC (INCL UDES DIFF/ PLT) absolute monocytes 756 cells /uL 200-95 0 normal Not Available [address], [address], 09/17/2024 21:39:18 09/18/19 25 09/17/2024 CBC (INCL UDES DIFF/ PLT) absolute eosinophils 130 cells /uL 15-500 normal Not Available [address], [address], 09/17/2024 21:39:18 09/18/19 25 09/17/2024 CBC (INCL UDES DIFF/ PLT) absolute basophils 76 cells /uL 0-200 normal Not Available [address], [address], 09/17/2024 21:39:18 09/18/19 25 09/17/2024 CBC (INCL UDES DIFF/ PLT) neutrophils 76.6 % normal Not Available [address], [address], 09/17/2024 21:39:18 09/18/19 25 09/17/2024 CBC (INCL UDES DIFF/ PLT) lymphocytes 14.5 % normal Not Available [address], [address], 09/17/2024 21:39:18 09/18/19 25 09/17/2024 CBC (INCL UDES DIFF/ PLT) monocytes 7.0 % normal Not Available [address], [address], 09/17/2024 21:39:18 09/18/19 25 09/17/2024 CBC (INCL UDES DIFF/ PLT) eosinophils 1.2 % normal Not Available [address], [address], 09/17/2024 21:39:18 09/18/19 25 09/17/2024 CBC (INCL UDES DIFF/ PLT) basophils 0.7 % normal Not Available [address], [address], 09/17/2024 21:39:18 09/18/19 25 09/17/2024 T4, FREE T4, free 2.3 NG/dL 0.8-1. 8 high Not Available [address], [address], 09/17/2024 21:39:19 09/18/19 25 09/17/2024 TSH TSH 0.05 mIU/L 0.40-4 .50 low Not Available 93 [address], [address], 09/17/2024 21:39:20 03/15/20 23 03/15/2023 DEXA, axial skele ton [facility] [address] [address] Patien t Name: DEBBIE CUTLER Access ion #: [id number] Sex: F : 1959 4 Dictat ed By: Emery steven Attend ing Physic arely: EVANS DUNN CE Orderi Physic arely: VEANS DUNN CE Exam Date: 2022 09:34 AM Exam Name: XR DEXA-H IPS PELVIS SPINE Admitt ing Diagno sis(es ): CLINIC AL HISTOR Y: Postme nopaus al screen ing for osteop orosis . TECHNI QUE: The study was perfor med using a Directa Plus Unit. Lumbar spine and proxim al femora l evalua tions were evalua srini in the fronta l projec tions. COMPAR NIKHIL: Prior DEXA scan dated 021. FINDIN GS: L1-L4 demons trates a bone minera l densit y of 0.978 g/cm2 with a T-scor e of -1.7, consis tent with osteop enia. There has been a 2.6% interv al increa se in bone minera l densit y in the lumbar spine compar ed to the prior exam. Left femora l neck evalua tion demons trates a bone minera l densit y of 0.821 g/cm2 with a T-scor e of -1.6, consis tent with osteop enia. Right femora l neck evalua tion demons trates a bone minera l densit y of 0.791 g/cm2 with a T-scor e of -1.8 within normal limits . There has been an interv al 0.2% decrea se in total mean proxim al femora l bone minera l densit y compar ed to the prior exam. Estima srini total body fat is 42.8%. BMI is 23.9. IMPRES JOSH: Bone minera l densit y is consis tent with osteop enia based on lowest T score as descri bed above. Electr onical ly Signed by: Emery steven at 2022 12:19: 32 PM Page 1 [email or web address] [facility] [address] [place], [address], 03/15/2023 17:41:28 03/15/20 23 03/15/2023 scree deborah breas t tejas, bilat [facility] [address] [place] [address] [place] t Name: DEBBIE CUTLER Access ion #: [id number] Sex: F : 1959 4 Dictat ed By: Miguel Oh Attend ing Physic arely: EVANS DUNN CE Orderi ng Physic arely: EVANS DUNN CE Exam Date: 2022 09:34 AM Exam Name: MG SCRN BREAST TEJAS BILAT Admitt ing Diagno sis(es ): Compar nikhil: 1 Screen ing mammog alexandria Techni que: Bilate ral CC and latera l images obtain ed are fulfil led with bilate ral tomosy nsthes is. Breast compos ition: Hetero genous ly dense. Digita l techni que per standa rd protoc ol Findin gs: No suspic ious mass or calcif icatio n is identi fied. No ronda ectura l distor tion is seen. There are no abnorm alitie s around the nipple areola r comple x. No adenop athy is apprec iated. . Conclu josh: No mammog raphic eviden ce of malign albert. Mammog raphic assess ment catego ry: BI-RAD S catego ry: 1 Negati ve A letter with the result s of this mammog alexandria was mailed to the patides[place] t Electr onical ly Signed by: Miguel Oh at 2022 12:28: 18 PM Page [address] (Imaging) [address] [place], [address], 03/15/2023 17:41:53 09/17/19 25 09/16/2024 US, echoc ardio gram No observ ation record ed. [address] [facility] [address] [address], [place], [address], 09/23/2024 10:37:41 Result Notes None recorded. Problems Name Problem SNOMED Code Status Onset Date Resolution Date Notes Provider Name and Address Organization Details Recorded Time Nodular fasciitis 370206058 Active 2022 Tana Begum CMA null, [facility] 3 10:56:55 Essential hypertens ion 24503073 Active 2022 Raimundo Dunn MD [address] [facility] [facility], [place], [address] , [facility] 3 10:47:46 Fractured nasal bones 355343723 Active 2022 Raimundo Dunn MD [address] [facility], [place], [address] , [facility] 3 16:48:30 Senile osteoporo sis 46896397 Active 2022 Ada Aaron cuellar, [facility] 3 10:46:53 Spinal enthesopa thy 66572959 Active Not Available [facility] 3 03:21:52 Renewal of prescript ion Active 2021 Not Available [facility] 3 03:21:52 Irritable bowel syndrome 29961022 Active Not Available [facility] 3 03:21:52 Disorder of sacrum 07423230 Completed Not Available [facility] 3 03:21:52 Hyperchol esterolem ia 87086374 Active 2016 Not Available [facility] 3 03:21:52 Acquired trigger finger 8691646 Active Not Available [facility] 3 03:21:52 Neuralgia 98640523 Completed Not Available [facility] 3 03:21:52 Contact dermatiti s caused by urushiol from [place] poison carmelita 006772586 Active 2021 Not Available [facility] 3 03:21:52 Localized , primary osteoarth ritis of the hand 855125179 Active Not Available [facility] 3 03:21:52 Fracture of metacarpa l bone 699579469 Active 2019 Not Available [facility] 3 03:21:52 Abdominal pain 37470077 Active Not Available [facility] 3 03:21:52 Ulnar nerve entrapmen t at elbow 702885654 Active 2021 Not Available [facility] 3 03:21:52 Gastroeso phageal reflux disease 192944128 Active Not Available [facility] 3 03:21:52 Impingeme nt syndrome of left shoulder region 10125766816 9104 Active 2021 Not Available [facility] 3 03:21:52 Localized , primary osteoarth ritis of the wrist 151756436 Active Not Available [facility] 3 03:21:53 Vitamin D deficienc y 42820645 Active 2021 Not Available [facility] 3 03:21:53 Depressiv e disorder 56744865 Active Not Available [facility] 3 03:21:53 Chronic pain syndrome 556196566 Active 2018 Not Available [facility] 3 03:21:53 Hypothyro idism 34847782 Active Not Available [facility] 3 03:21:53 Acute urinary tract infection 402886108 Active 2021 Not Available [facility] 3 03:21:53 Dysuria 38254517 Active 2021 Not Available [facility] 3 03:21:53 Residual foreign body in soft tissue 6146903 Completed Not Available [facility] 3 03:21:53 Disorder of coccyx 60690948 Completed Not Available [facility] 3 03:21:53 Complex regional pain syndrome of upper limb 683304376 Active 2018 Not Available [facility] 3 03:21:53 Pain of elbow region 20504862 Completed Not Available [facility] 3 03:21:53 Kidney stone 75711512 Active 2016 Not Available [facility] 3 03:21:54 Eczema 32533276 Active 2024 Raimundo Dunn MD [address] [facility], [facility] [address], [place], [address] , [facility] [employer] [facility] 5 11:44:46 Notes:Some problems listed i n Documents: #[id number], #[id number], #[id number], #[id number] could not be added to this patient's chart. Please review these documents and add these problems to the patient's chart manually as needed. Problem Notes None recorded. Procedures Surgical History Date Name Laterality Status Provider Name and Address Organization Details Recorded Time 08/23/19 24 Medicare Wellness CPT Code, subsequent completed Jossie Morley RN [place] - [place] [facility] 08/23/2023 10:50:05 05/03/20 21 Most Recent Bone Density completed Not Available [facility] 08/23/2022 03:14:17 12/05/19 20 Date of Last Colonoscopy completed Not Available [facility] 08/23/2022 03:14:17 Imaging Results None recorded. Procedure Notes None recorded. Medical Equipment None Reported. Allergies Allergen ID Allergen Name Allergen Category Reaction Reaction Severity Criticality Documentation Date Start Date Code Code System Note Provider Name and Address Organization Details Recorded Time 6232 Neurontin medicatio n hallucina tions Not available Not available 08/23/2022 06967 8 RxNorm Not Available [facility] 3 03:34:08 Medications Name Sig Start Date Stop Date Status Note LastModified by Organization Details LastModified Time cyclobenzap rine 10 mg tablet Take 1 tablet three times daily active Not Available Not Available No t Available amoxicillin 500 mg capsule Take 1 capsule 3 times a day by oral route for 10 days. 12/23 completed Not Available Not Available Not Available buspirone 5 mg tablet TAKE 1 TABLET BY MOUTH TWICE DAILY active Not Available Not Available No t Available Augmentin 875 mg-125 mg tablet Take 1 tablet every 12 hours by oral route. 12/28 completed Not Available Not Available Not Available levothyroxi ne 175 mcg tablet TAKE 1 TABLET BY MOUTH EVERY DAY 07/14 completed Not Available Not Available Not Available azithromyci n 250 mg tablet TAKE 2 TABLETS (500 MG) BY ORAL ROUTE ONCE DAILY FOR 1 DAY THEN 1 TABLET (250 MG) BY ORAL ROUTE ONCE DAILY FOR 4 DAYS 04/21 completed Not Available Not Available Not Available benzonatate 200 mg capsule Take 1 capsule 3 times a day by oral route. active Not Available Not Available No t Available citalopram 10 mg tablet TAKE 1 TABLET BY MOUTH EVERY DAY completed Not Available Not Available Not Available cephalexin 250 mg capsule TAKE 1 CAPSULE BY MOUTH EVERY 8 HOURS FOR 10 DAYS 12/04 completed Not Available Not Available Not Available hydrocodone 5 mg-acetamin ophen 325 mg tablet TAKE 1 TABLET BY MOUTH EVERY 6 HOURS NEEDED FOR PAIN 09/27 completed Not Available Not Available Not Available Ativan 1 mg tablet Take 1 tablet 3 times a day by oral route. 10/19 completed Not Available Not Available Not Available ondansetron HCl 4 mg tablet Take 1 tablet 3 times a day by oral route. active Not Available Not Available No t Available isosorbide mononitrate ER 30 mg tablet,exte nded release 24 hr TAKE 1 TABLET BY MOUTH DAILY 12/04 completed Not Available Not Available Not Available amlodipine 2.5 mg tablet TAKE 1 TABLET BY MOUTH DAILY active Not Available Not Available No t Available metronidazo le 500 mg tablet TAKE 1 TABLET BY MOUTH EVERY 8 HOURS FOR 10 DAYS 12/04 completed Not Available Not Available Not Available clopidogrel 75 mg tablet TAKE 1 TABLET BY MOUTH EVERY DAY 03/10 completed Not Available Not Available Not Available amlodipine 5 mg tablet TAKE 1 TABLET BY MOUTH DAILY 07/14 completed Not Available Not Available Not Available sulfamethox azole 800 mg-trimetho prim 160 mg tablet TAKE 1 TABLET BY MOUTH EVERY 12 HOURS 10/19 completed Not Available Not Available Not Available peg-electro lyte solution 420 gram oral solution active Not Available Not Available Not Available omeprazole 40 mg capsule,del ayed release TAKE 1 CAPSULE BY MOUTH DAILY active Not Available Not Available No t Available aspirin 81 mg tablet,jaime yed release Take 1 tablet every day by oral route. active Not Available Not Available No t Available tramadol 50 mg tablet 12/04 completed Not Available Not Available Not Available triamcinolo ne acetonide 0.1 % topical cream APPLY THIN LAYER TOPICALLY TO THE AFFECTED AREA TWICE DAILY active Not Available Not Available No t Available Prevacid 30 mg capsule,del ayed release Take 1 capsule every day by oral route. 2012 active Not Available Not Available Not Avai lable levothyroxi ne 100 mcg tablet TAKE 1 TABLET BY MOUTH EVERY DAY active Not Available Not Available No t Available oxycodone-a cetaminophe n 5 mg-325 mg tablet TAKE 1 TABLET BY MOUTH THREE TIMES DAILY NEEDED active Not Available Not Available No t Available citalopram 20 mg tablet TAKE 1 TABLET BY MOUTH ONCE DAILY active Not Available Not Available No t Available lorazepam 0.5 mg tablet Take 1 tablet 3 times a day by oral route. active Not Available Not Available No t Available dicyclomine 20 mg tablet TAKE 1 TABLET BY MOUTH THREE TIMES DAILY NEEDED FOR ABDOMINAL DISCOMFOR T active Not Available Not Available No t Available Kenalog 10 mg/mL suspension for injection In office injection administe red by the provider 04/20 completed [facility]: 0003- 0494- 20 Not Available Not Available Not Available meclizine 25 mg tablet TAKE 1 TABLET BY MOUTH THREE TIMES DAILY NEEDED active Not Available Not Available No t Available pantoprazol e 40 mg tablet,jaime yed release TAKE 1 TABLET BY MOUTH EVERY MORNING active Not Available Not Available No t Available simvastatin 20 mg tablet TAKE 1 TABLET BY MOUTH EVERY DAY 06/12 completed Not Available Not Available Not Available Cipro 500 mg tablet Take 1 tablet twice a day by oral route for 10 days. 02/07 completed Not Available Not Available Not Available Robaxin-750 750 mg tablet Take 1 tablet 3 times a day by oral route. active Not Available Not Available No t Available promethazin e 25 mg tablet Take 1 tablet every 4 hours by oral route. 2014 active Not Available Not Available Not Avai lable levothyroxi ne 150 mcg tablet TAKE 1 TABLET BY MOUTH DAILY FOR THYROID 09/22 completed Not Available Not Available Not Available omeprazole 20 mg capsule,del ayed release TAKE 1 CAPSULE BY MOUTH EVERY DAY 04/29 completed Not Available Not Available Not Available Enteric Coated Aspirin 325 mg tablet,jaime yed release Take 1 tablet every day by oral route. 2012 active Not Available Not Available Not Avai lable aspirin 81 mg chewable tablet Chew 1 tablet every day by oral route. 03/10 completed Not Available Not Available Not Available levothyroxi ne 200 mcg tablet TAKE 1 TABLET BY MOUTH EVERY DAY 04/13 completed Not Available Not Available Not Available Levaquin 500 mg tablet Take 1 tablet every 24 hours by oral route. active Not Available Not Available No t Available Pepcid 20 mg tablet Take 1 tablet twice a day by oral route. 2014 active Not Available Not Available Not Avai lable levofloxaci n 750 mg tablet TK 1 T PO QD 06/07 completed Not Available Not Available Not Available methylpredn isolone 4 mg tablets in a dose pack TAKE DIRECTED 10/19 completed Not Available Not Available Not Available oxybutynin chloride 5 mg tablet one three times a day 08/27 completed Not Available Not Available Not Available hydroxyzine HCl 10 mg tablet Take 1 tablet 3 times a day by oral route. 08/26 completed Not Available Not Available Not Available ondansetron 4 mg disintegrat ing tablet Take 2 tablets every 12 hours by oral route. 08/27 completed Not Available Not Available Not Available Klonopin 1 mg tablet Take 1 tablet every day by oral route. 2012 active Not Available Not Available Not Avai lable doxycycline hyclate 100 mg tablet TK 1 T PO BID FOR 10 DAYS 06/07 completed Not Available Not Available Not Available dicyclomine 10 mg capsule Take 1 capsule 3 times a day by oral route. 10/19 completed Not Available Not Available Not Available Skelaxin 800 mg tablet Take 1 tablet 3 times a day by oral route. active Not Available Not Available No t Available rosuvastati n 20 mg tablet TAKE 1 TABLET BY MOUTH EVERY DAY active Not Available Not Available No t Available nitrofurant oin monohydrate /macrocryst als 100 mg capsule Take 1 capsule every 12 hours by oral route for 7 days. active Not Available Not Available No t Available Cymbalta 60 mg capsule,del ayed release Take 1 capsule every day by oral route. 2012 active Not Available Not Available Not Avai lable Cymbalta 30 mg capsule,del ayed release Take 1 capsule every day by oral route. 2013 active Not Available Not Available Not Avai lable pregabalin 50 mg capsule TAKE ONE CAPSULE BY MOUTH TWICE DAILY 04/21 completed Not Available Not Available Not Available Lyrica 75 mg capsule Take 1 capsule every day by oral route. 06/07 completed Not Available Not Available Not Available Percocet 2012 active Not Available Not Available Not Avai lable Cymbalta 2012 active Not Available Not Available Not Avai lable Lyrica 75 mg once daily 05/20 completed Not Available Not Available Not Available ranolazine ER 500 mg tablet,exte nded release,12 hr TAKE 1 TABLET BY MOUTH TWICE DAILY 02/22 completed Not Available Not Available Not Available lidocaine (PF) 10 mg/mL (1 %) injection solution In office injection administe red by the provider 04/20 completed [facility]: 0409- 4276- 17 Not Available Not Available Not Available Vitals Date Recorded Body height Body mass index (BMI) Body weight Heart rate Body temperature Oxygen saturation Oxygen saturation in Arterial blood by Pulse oximetry Systolic blood pressure Diastolic blood pressure Provider Name and Address Organization Details Last Updated DateTime 5 160.66 cm 23.7 kg/m2 70815.9 7 g 101 /min 97 [degF] 98 % 98 % 120 mm[Hg] 70 mm[Hg] [employer] [facility] 5 11:35:25 Date Recorded Body height Body mass index (BMI) Body weight Heart rate Body temperature Oxygen saturation Oxygen saturation in Arterial blood by Pulse oximetry Systolic blood pressure Diastolic blood pressure Provider Name and Address Organization Details Last Updated DateTime 4 160.02 cm 24.7 kg/m2 69337.1 4 g 71 /min 97.7 [degF] 96 % 96 % 118 mm[Hg] 72 mm[Hg] MARIA FERNANDA Yanez [employer] [facility] 4 10:44:04 Date Recorded Body height Body mass index (BMI) Body weight Heart rate Body temperature Oxygen saturation Oxygen saturation in Arterial blood by Pulse oximetry Systolic blood pressure Diastolic blood pressure Provider Name and Address Organization Details Last Updated DateTime 3 160.02 cm 23.8 kg/m2 78351.1 7 g 72 /min 97.2 [degF] 97 % 97 % 124 mm[Hg] 64 mm[Hg] April [facility] 3 16:35:53 Date Recorded Body height Body mass index (BMI) Body weight Body temperature Heart rate Oxygen saturation Oxygen saturation in Arterial blood by Pulse oximetry Systolic blood pressure Diastolic blood pressure Provider Name and Address Organization Details Last Updated DateTime 3 160.02 cm 23.9 kg/m2 20132.9 7 g 98.9 [degF] 97 /min 99 % 99 % 120 mm[Hg] 70 mm[Hg] Jane Bledsoe MA [employer] 3 10:33:15 Date Recorded Body height Body weight Heart rate Body temperature Oxygen saturation Oxygen saturation in Arterial blood by Pulse oximetry Systolic blood pressure Diastolic blood pressure Provider Name and Address Organization Details Last Updated DateTime 4 160.02 cm 51192.0 1 g 75 /min 97.9 [degF] 97 % 97 % 120 mm[Hg] 76 mm[Hg] MARIA FERNANDA Yanez [employer] 4 16:47:33 Social History Question Answer Notes LastModified by Organizat ion Details LastModified Time Tobacco Smoking Status Unknown If Ever Smoked Not Available [facility] 08/23/2022 03:02:51 Do You Have An Advance Directive? No [email or web address] Information not available 08/23/2023 In The 14 Days Before Symptom Onset, Have You Had Close Contact With A Laboratory-confi rmed COVID-19 While That Case Was Ill? No [id number] Information not available 08/23/2022 In The 14 Days Before Symptom Onset, Have You Had Close Contact With A Person Who Is Under Investigation For COVID-19 While That Person Was Ill? No [id number] Information not available 08/23/2022 What Type Of Diet Are You Following? REGULAR [email or web address] Information not available 08/23/2023 Have There Been Any Changes To Your Family Or Social Situation? No [email or web address] Information not available 08/23/2023 What Is The Fluoride Status Of Your Home? Unknown [email or web address] Information not available 08/23/2023 Where Do You Live? SingleLevelHouse [email or web address] Information not available 08/23/2023 Are You Able To Care For Yourself? Yes [email or web address] Information not available 08/23/2023 Are You Blind Or Do Yo Have Difficulty Seeing? No [email or web address] Information not available 08/23/2023 Are You Deaf Or Do You Have Serious Difficulty Hearing? No [email or web address] Information not available 08/23/2023 Live Alone Of With Others? With Others [email or web address] Information not available 08/23/2023 Do You Have A Medical Power Of Clinic Assistant? No [email or web address] Information not available 08/23/2023 What Was The Date Of Your Most Recent Tobacco Screening? 08/23/2023 [email or web address] Information not available 08/23/2023 Do You Have Any Pets? Yes [email or web address] Information not available 08/23/2023 Do You Use Your Seat Belt Or Car Seat Routinely? Yes [email or web address] Information not available 08/23/2023 Do You Have Smoke And Carbon Monoxide Detectors In Your Home? Yes [email or web address] Information not available 08/23/2023 Have You Recently Traveled Abroad? No [id number] Information not available 08/23/2022 Sex: Unknown Functional Status Question Answer Note LastModified by Organizat ion Details LastModified Time What is your level of alcohol consumption? Occasional [id number] Information not available 08/23/2022 What is your exercise level? Occasional Information not available 08/23/2023 Mental Status None recorded. Family History Relationship Description Onset Age of this Age Resolved Age Notes LastModified by Organization Details LastModified Time Father Family history of malignant neoplasm [id number] Not available 08/23/2022 03:14:23 Father Diabetes mellitus [id number] Not available 08/23/2022 03:14:23 Mother Hypertensive disorder [id number] Not available 08/23/2022 03:14:23 Sister Complication of anesthesia [id number] Not available 08/23/2022 03:14:23 Notes:Mother 67 yea rs old Father 70 years old 1 Brothers 0 Living 3 Sisters 3 Living Mother Hx: COPD Father Hx: Ca of Lung Brother Hx: ASHD (1) , HTN (1) , Ca of Breast (1) , Ca of Uterus (1) Medical History Condition Response NERVE DISEASE N BLINDNESS N RHEUMATIC FEVER N KIDNEY STONES Y BLADDER PROBLEMS N MRSA N OTHER # 1 N POLIO N LUNG DISEASE/DISORDER N RADIATION / CHEMOTHERAPY N COPD N Other # 2 N BLOOD DISEASES N SURGERY N EAR OR HEARING PROBLEMS N MUMPS N BOWEL PROBLEMS N DEPRESSION (INCLUDING POST ) Y STROKE/TIA N ULCERS N BENIGN PROSTATIC HYPERPLASIA N MEASLES N MYOCARDIAL INFARCTION N OBESITY N GERD/NAUSEA Y ANEURYSM N URINARY/BLADDER/KIDNEY PROBLEMS N CORONARY ARTERY DISEASE (CAD) N ADDICTION CONCERNS N Impotence N ENDOMETRIOSIS N USE OF BLOOD THINNERS N SKIN PROBLEMS N GASTROINTESTINAL DISORDER Y PERIPHERAL VASCULAR DISEASE N MUSCLE,JOINT OR BONE PROBLEMS Y GASTROINTESTINAL BLEEDING N BLOOD CLOTS N ASTHMA N CATARACTS N ERECTILE DYSFUNCTION N VARICOSITIES N GI PROBLEMS N Low Testosterone N INFERTILITY N AIDS/HIV N CHEMOTHERAPY / RADIATION N LIVER DISEASE N MALE HYPOGONADISM N HYPERTENSION N Deficiency N ANXIETY DISORDER N BLOOD TRANSFUSION N ANEMIA/BLOOD DISORDER N CHRONIC EAR INFECTIONS N BRONCHITIS N TUBERCULOSIS N GLAUCOMA N FOOT PROBLEM N DIVERTICULITIS N SLEEP APNEA N CHICKENPOX N INFECTIOUS DISEASE N PROSTATE N HEART ARRHYTHMIA N INSOMNIA N HIGH CHOLESTEROL / HYPERLIPIDEMIA Y EYE PROBLEMS N HYPERTHYROIDISM N NEUROLOGICAL PROBLEMS N EDEMA N CHRONIC PAIN SYNDROME Y HYPOTHYROIDISM Y CONSTIPATION N CAROTID BLOCKAGE N BACK / NECK PROBLEMS N HAVE YOU BEEN HOSPITALIZED OR SEEN IN [facility] IN THE PAST YEAR ? Y ATHEROSCLEROSIS N BREAST PROBLEMS N DIALYSIS N ECZEMA N OSTEOPOROSIS N ARTHRITIS Y NO SIGNIFICANT PAST MEDICAL HISTORY N APPENDICITIS N DIABETES, TYPE N BAD TEETH N ENT N HEARTBURN / REFLUX N AUTISM SPECTRUM DISORDER (ASD) N HEPATITIS / LIVER DISEASE N GOUT N SLEEP DISORDER N ALZHEIMER'S DISEASE N Brain Problems N DEMENTIA N HERPES N SEIZURES/EPILEPSY N HEADACHES/MIGRAINES N VASCULAR DISEASE N PACEMAKER N Blood Disorder N DIZZINESS N HEART DISEASE/HEART PROBLEMS N KIDNEY DISEASE N MULTIPLE SCLEROSIS N CANCER: SPECIFY N CARDIAC ARRHYTHMIA N ATRIAL FIBRILLATION N Gall Stones N PULMONARY EMBOLISM N AUTOIMMUNE DISEASE N Gynecological History Statement/Question Response Date of Last Pap Date of Last Mammogram 05/03/2021 Date of Last Colonoscopy 12/05/2019 Most Recent Bone Density 05/03/2021 Obstetrics History GPAL:G 0 P 0 0 0 0 Immunizations Vaccine Type Date Status Note Provider Saleem tim and Address Organization Details Recorded Time Pneumococcal conjugate PCV20, polysaccharide ZTS102 conjugate, adjuvant, PF 5 completed YUE Wetzel - Tammy [facility] 08/08/2024 12:13:23 COVID-19, mRNA, LNP-S, PF, 100 mcg/0.5mL dose or 50 mcg/0.25mL dose 1 completed Not Available [facility] 12/11/2022 08:42:19 COVID-19, mRNA, LNP-S, PF, 100 mcg/0.5mL dose or 50 mcg/0.25mL dose 1 completed Not Available [facility] 12/11/2022 08:42:19 Influenza, split virus, quadrivalent, preservative 8 completed Not Available [facility] 12/11/2022 08:42:19 pneumococcal polysaccharide PPV23 1 completed Not Available [facility] 12/11/2022 08:42:19 Influenza, split virus, quadrivalent, PF 8 completed Not Available [facility] 12/11/2022 08:42:19 Influenza, split virus, quadrivalent, PF 2 completed Not Available [facility] 12/11/2022 08:42:19 Influenza, split virus, quadrivalent, PF 1 completed Not Available [facility] 12/11/2022 08:42:19 Influenza, split virus, quadrivalent, PF 0 completed Not Available [facility] 12/11/2022 08:42:19 Pneumococcal conjugate PCV 13 6 completed Not Available [facility] 12/11/2022 08:42:19 Past Encounters Encounter ID Performer Location Encounter Start Date Encounter Closed Date Diagnosis/Indication Diagnosis SNOMED-CT Code Diagnosis ICD10 Code Diagnosis Note [id number] S[facility] [facility] [place] [address] [facility] [address] [place] [address] 09/03/2020 00:00:00 09/03/2020 11:05:08 [id number] Raimundo Dunn MD [facility] Internal Med [facility] 24 [address] [facility] 24 [place] [address] 09/27/2020 00:00:00 09/27/2020 15:03:16 [id number] Saeid Nix MD [facility] [place] [address] [facility] [address] [place] [address] 10/12/2020 00:00:00 10/12/2020 09:27:40 [id number] Saeid Nix MD [facility] [place] [address] [facility] [address] [place] [address] 02/01/2021 00:00:00 02/01/2021 10:46:59 [id number] Saeid Nix MD [facility] [place] [address] [place] [address] 04/05/2021 00:00:00 04/05/2021 09:34:23 [id number] Raimundo Dunn MD [facility] [address] [place] [address] [address] 04/21/2021 00:00:00 04/21/2021 11:19:20 [id number] Saeid Nix MD [facility] [place] [address] [place] [address] 06/07/2021 00:00:00 06/07/2021 11:04:11 [id number] Saeid Nix MD [facility] [place] [address] [place], [place] [address] 08/09/2021 00:00:00 08/09/2021 10:13:02 [id number] Raimundo Dunn MD [facility] [address] [address] 10/20/2021 00:00:00 10/20/2021 11:05:41 [id number] Saeid Nix MD [facility] [place] [address] [facility] [address] [place] [address] 11/08/2021 00:00:00 11/08/2021 10:46:39 [id number] MD BREEZY RichterS[facility] [address] [address] [address] 04/20/2022 00:00:00 04/20/2022 11:20:01 [id number] Raimundo Dunn MD [facility] [address] [facility] [address] 10/19/2022 10:22:13 10/19/2022 11:03:01 Essential hypertension 72201233 I10 Gastroesop hageal reflux disease 957017064 K21.9 Hypercholesterolemia 136 77191 E78.00 Hypothyroidism 63323694 E03.9 [id number] Raimundo Dunn MD [facility] [address] [address] 12/04/2022 16:15:07 12/04/2022 16:51:27 Fractured nasal bones 291491445 S02.2XXA [id number] Raimundo Dunn MD [facility] Internal Med [facility] [address] [address] 02/22/2023 10:27:38 02/22/2023 10:52:17 Complex regional pain syndrome of upper limb 963812943 M79.601 Essential hypertension 47671125 I10 Hypercholesterolemia 136 97050 E78.00 Hypothyroidism 57693782 E03.9 Vitamin D deficiency 347 72948 E55.9 [id number] Raimundo Dunn MD [facility] Internal Med [facility] [address] [address] 08/23/2023 10:29:19 08/23/2023 11:10:14 Adult health examination 759240587 Z00.00 Screening for disorder 430975812 Z13.9 Chronic pain syndrome 37 1187860 G89.4 Essential hypertension 86875693 I10 Hypercholesterolemia 136 92173 E78.00 Hypothyroidism 58100119 E03.9 Long-term current use of opiate analgesic drug 9726105405 15202 Z79.822 [id number] Raimundo Dunn MD [facility] Internal Med [facility] [address] [address] 03/10/2024 16:33:23 03/10/2024 17:15:33 Essential hypertension 55678706 I10 Hypercholesterolemia 136 88004 E78.00 Hypothyroidism 24160706 E03.9 Complex re gional pain syndrome of upper limb 720778385 M79.367 [id number] Raimundo Dunn MD [facility] Internal Med [facility] [address] [address] 07/14/2024 11:12:57 07/14/2024 11:49:44 Essential hypertension 05378557 I10 Hypercholesterolemia 136 58945 E78.00 Hypothyroidism 39679770 E03.9 Complex re gional pain syndrome of upper limb 084471589 M79.601 Eczema 71315829 L30.9 Health Concerns Section Related Observation LastModified by Organization Detai ls LastModified Time None Recorded Concern Status LastModified by Organization Details LastModified Time None Recorded Advance Directives Directive N: Payers Encounter Date Sequence Insurance Name Policy Number Policy Saldaña Covered Member ID Saldaña Member ID Guarantor Name 12/04/2022 1 [facility] - MEDICARE SOLUTIONS - MEDICARE COMPLETE (MEDICARE REPLACEMENT HMO) [id number] Mayra Hernándezell [id number] Mayra Morgan Cutler 02/22/2023 1 [facility] - MEDICARE SOLUTIONS - MEDICARE COMPLETE (MEDICARE REPLACEMENT HMO) [id number] Mayra Morgan Cutler [id number] Mayra Morgan Cutler 08/23/2023 1 [facility] - MEDICARE SOLUTIONS - MEDICARE COMPLETE (MEDICARE REPLACEMENT HMO) [id number] Mayra Hernándezell [id number] Mayra Morgan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
== END 2024-11-28 08:04 | disposition home or self-care (01) ==
LOC: ANHIMG 08:04
PROVIDERS: PCP Internal Medicine; Visit Provider Internal Medicine
DX: Z12.31 Encounter for screening mammogram for malignant neoplasm of breast (principal)
CPT/HCPCS: 77063; 77067

== ENCOUNTER 2025-01-12 12:28 | Outpatient (CLI) | payer MEDICARE, SELFPAY ==
--- NOTE | ~2025-01-12 | XR_ITS ---
XR_[id number]_CR 01/12/2025 12:58 Indication: Neck pain Procedure: 3 view cervical spine Comparison: No prior studies for comparison. Findings: There is multilevel uncinate and facet hypertrophy. Vertebral body heights are maintained. There is degenerative anterolisthesis at C5-6 and C6-7. No prevertebral soft tissue swelling. Odontoi d process is normal. Lateral masses normally aligned. Lung apices are normal. Impression: 1: Moderate-severe cervical spondylosis. Reviewed, dictated and finalized at location A. Impression: 1: Moderate-severe cervical spondylosis.
--- NOTE | ~2025-01-12 | XR_ITS ---
XR facial bones min 3V 01/12/2025 12:58 INDICATION: Headache PROCEDURE: 5 views facial bones COMPARISON: No prior studies for comparison. FINDINGS: Fracture, dislocation or subluxation is not identified. The soft tissues appear within norm al limits. No foreign bodies are identified. IMPRESSION: 1: NO ACUTE BONE OR JOINT ABNORMALITY IDENTIFIED. Reviewed, dictated and finalized at location A.
--- OUTSIDE RECORDS SUMMARY | 2025-01-12 12:35 | XMS_ITS | Data Portability ---
Author Organization [place] [facility] [employer], Main Office Address [address] [place] [address] Care Team Providers Care Data Management Analyst Name Role Phone RAIMUNDO DUNN Primary Care Provider [phone] RAIMUNDO DUNN Referring Provider [phone] Assessment No assessment recorded. Plan of Treatment Reminders Order Date Submit Date Provider Last Modified By Organization Details Last Modified Time Details Appointments Any 10 2024 10:30A M Raimundo Dunn MD Not available Not available Not available Lab lipid panel, serum 2024 025 [facility], [address] [place], [address], 08/08/2024 13:43:38 CMP, serum or plasma 2024 025 [email or web address] [facility], [address] [place], [address], 08/08/2024 13:43:38 T4, free, serum 2024 025 [email or web address] [facility], [address] [place], [address], 08/08/2024 13:43:39 TSH, serum or plasma 2024 025 [email or web address] [facility], [address] [place], [address], 08/08/2024 13:43:39 CBC w/ auto diff 2024 025 [email or web address] [facility], [address] [place], [address], 08/08/2024 13:43:39 lipid panel, serum 2023 024 [facility] Out[facility] Lab, [address] [place], [address], 03/21/2024 12:12:19 CMP, serum or plasma 2023 024 [facility] Out[facility], [address] [place], [address], 03/21/2024 12:12:28 T4, free, serum 2023 024 [facility] Out[facility], [address] [place], [address], 03/21/2024 12:32:40 TSH, serum or plasma 2023 024 [facility] Out[facility] Lab, [address] [place], [address], 03/21/2024 12:37:30 CK (creatine kinase), total, serum 2023 024 [facility] Out[facility] Lab, [address] [place], [address], 03/21/2024 12:12:08 CBC w/ auto diff [id number] [place] [address] Outpatient Lab, [address] [place], [address], 08/30/2023 14:56:18 CMP, serum or plasma [id number] [place] [address] Outpatient Lab, [address] [place], [address], 08/30/2023 14:56:18 lipid panel, serum [id number] [place] [address] Outpatient Lab, [address] [place], [address], 08/30/2023 14:56:18 TSH, serum or plasma 2023 024 [email or web address] [facility], [address] [place], [address], 08/30/2023 14:56:18 T4, free, serum 2023 024 [email or web address] [facility], [address] [place], [address], 08/30/2023 14:56:18 drug screen, urine 2023 024 [facility] [address], [place], [address], 08/30/2023 14:56:18 vitamin D, 25-hydrox y, total, serum 2022 023 [email or web address] [facility], [address] [place], [address], 03/23/2023 09:59:25 lipid panel, serum 2022 023 [email or web address] [facility] Outpatient Lab, [address] [place], [address], 03/23/2023 09:59:24 CMP, serum or plasma 2022 023 [email or web address] [facility], [address] [place], [address], 03/23/2023 09:59:24 CBC w/ auto diff 2022 023 [email or web address] [facility], [address] [place], [address], 03/23/2023 09:59:24 TSH, serum or plasma 2022 023 [email or web address] [facility] Outpatient Lab, [address] [place], [address], 03/23/2023 09:59:24 T4, free, serum 2022 023 [id number] [facility], [address], [place], [address], 03/23/2023 09:59:24 Referral None recorded. Procedures None recorded. Surgeries None recorded. Imaging None recorded. Medication Orders triamcino lone acetonide 0.1 % topical cream 2024 025 [id number], [address], [place], [place], [id number], 07/14/2024 11:45:26 Patient TargetsNo targets recorded. Patient Instructions Encounter Date Encounter Id Patient Instructions Last Modified By Organization Details Last Modified Time 02/22/2023 [id number] Follow-up for hypertension -hyperlipidemia -hypothyroidism -complex regional [...] with voice recognition software. Occasional wrong-word or tnwfv-w-bgan substitutions may have occurred due to the inherent limitations of voice recognition software. Read the chart carefully and recognize, using context, where substitutions have occurred. Mammogram Bone density scan [email or web address] Not available 02/22/2023 10:41:54 08/23/2023 [id number] dementia rating scale-2* [email or web address] Not available 08/23/2023 11:02:21 alcohol misuse* [email or web address] Not available 08/23/2023 11:02:22 depression screening* [email or web address] Not available 08/23/2023 11:02:21 Timed Up and Go test (TUG)* [email or web address] Not available 08/23/2023 11:02:21 multi-dimensiona l health assessment questionnaire* Not available 08/23/2023 11:02:22 Personalized Hea lt Plan and Screening Recommendations Advance Directives - Do you have one? No Not interested at this time Advance Directives - Do we have your advance directive on file in your health record? Primary Prevention/Interven tion (prevents or decreases the chance of common diseases from occurring) Smoking Risk: Non Smoker Alcohol Misuse Screening: Negative Weight: Appropriate Physical activity: Need more exercise/physical activity Nutrition: Average Eat heart healthy diet Fall Risk (screened [...] or ) Breast Cancer Screening with mammogram: up to date Cervical/Uterine/Ov monique Cancer Screening: Recommended today Osteoporosis Screening: up to date Date Screening Last Performed: Colon Cancer Screening: Colonoscopy due 2027 Date Screening Last Performed: __2022___ Eye Disease Screening: Your next exam in: goes every 2 yrs Dementia Risk: Low I have no recommendations Depression Screening: Negative Active diagnosis, Continue current treatment plan [email or web address] Not available 08/23/2023 10:55:37 Wellness evaluat ion [...] with voice recognition software. Occasional wrong-word or ahlst-m-cplo substitutions may have occurred due to the inherent limitations of voice recognition software. Read the chart carefully and recognize, using context, where substitutions have occurred. [email or web address] Not available 08/23/2023 11:02:10 03/10/2024 [id number] Hypertension, hyperlipidemia, hypothyroidism as well as history [...] with voice recognition software. Occasional wrong-word or dgodw-y-uuiu substitutions may have occurred due to the inherent limitations of voice recognition software. Read the chart carefully and recognize, using context, where substitutions have occurred. [email or web address] Not available 03/10/2024 17:12:35 07/14/2024 [id number] Follow-up hypertension, hyperlipidemia, hypothyroidism and complex regional [...] with voice recognition software. Occasional wrong-word or eslzj-b-pfuu substitutions may have occurred due to the inherent limitations of voice recognition software. Read the chart carefully and recognize, using context, where substitutions have occurred. Created: Raimundo Dunn M.D. 07.14.2024 10:45 AM [email or web address] Not available 07/14/2024 11:45:22 Reason for Referral None Reported. Results Created Date Observation Date Name Description Value Unit Range Abnormal Flag Note LastModifiedBy Organization Detail LastModifiedTime 04/09/2004/09/2023 CBC/C OMPLE TE BLD COUNT W/DIF F white blood cells 5.1 x10'3 /uL 4.2-10 .8 Not Available [facility] (Lab) [address] [place], [address], 04/09/2023 11:11:52 04/09/20 23 04/09/2023 CBC/C OMPLE TE BLD COUNT W/DIF F red blood cells 4.47 x10'6 /uL 3.80-5 .20 Not Available [facility] (Lab) [address] [place], [address], 04/09/2023 11:11:52 04/09/2004/09/2023 CBC/C OMPLE TE BLD COUNT W/DIF F hemoglobin 13.9 g/dL 12.0-1 5.6 Not Available [facility] (Lab) [address] [place], [address], 04/09/2023 11:11:52 04/09/2004/09/2023 CBC/C OMPLE TE BLD COUNT W/DIF F hematocrit 41.4 % 35.7-4 5.7 Not Available [facility] (Lab) [address] [place], [address], 04/09/2023 11:11:52 04/09/2004/09/2023 CBC/C OMPLE TE BLD COUNT W/DIF F mean red cell volume 92.6 fL 82.0-9 9.0 Not Available [facility] (Lab) [address] [place], [address], 04/09/2023 11:11:52 04/09/2004/09/2023 CBC/C OMPLE TE BLD COUNT W/DIF F mean red cell hemoglobin 31.1 pg 27.0-3 3.0 Not Available [facility] (Lab) [address] [place], [address], 04/09/2023 11:11:52 04/09/2004/09/2023 CBC/C OMPLE TE BLD COUNT W/DIF F mean RBC HGB concentratio n 33.6 g/dL 31.0-3 6.0 Not Available [facility] (Lab) [address] [place], [address], 04/09/2023 11:11:52 04/09/2004/09/2023 CBC/C OMPLE TE BLD COUNT W/DIF F red cell distribution width 12.3 % 11.8-1 5.5 Not Available [facility] (Lab) [address] [place], [address], 04/09/2023 11:11:52 04/09/2004/09/2023 CBC/C OMPLE TE BLD COUNT W/DIF F platelets 335 x10'3 /uL 150-40 0 Not Available [facility] (Lab) [address] [place], [address], 04/09/2023 11:11:52 04/09/2004/09/2023 CBC/C OMPLE TE BLD COUNT W/DIF F mean platelet volume 10.5 fL 9.0-12 .4 Not Available [facility] (Lab) [address] [place], [address], 04/09/2023 11:11:52 04/09/2004/09/2023 CBC/C OMPLE TE BLD COUNT W/DIF F neutrophils 41.9 % 39.0-7 2.0 Not Available [facility] (Lab) [address] [place], [address], 04/09/2023 11:11:52 04/09/2004/09/2023 CBC/C OMPLE TE BLD COUNT W/DIF F lymphocytes 43.2 % 16.0-4 7.0 Not Available [facility] (Lab) [address] [place], [address], 04/09/2023 11:11:52 04/09/2004/09/2023 CBC/C OMPLE TE BLD COUNT W/DIF F monocytes 10.7 % 5.0-12 .0 Not Available [facility] (Lab) [address] [place], [address], 04/09/2023 11:11:52 04/09/2004/09/2023 CBC/C OMPLE TE BLD COUNT W/DIF F eosinophils 3.2 % 1.0-7. 0 Not Available [facility] (Lab) [address] [place], [address], 04/09/2023 11:11:52 04/09/2004/09/2023 CBC/C OMPLE TE BLD COUNT W/DIF F basophils 0.8 % 0.0-2. 0 Not Available [facility] (Lab) [address] [place], [address], 04/09/2023 11:11:52 04/09/2004/09/2023 CBC/C OMPLE TE BLD COUNT W/DIF F immature granulocytes 0.2 % 0.00-0 .50 Not Available [facility] (Lab) [address] [place], [address], 04/09/2023 11:11:52 04/09/2004/09/2023 CBC/C OMPLE TE BLD COUNT W/DIF F neutrophils, absolute count 2.12 x10'3 /uL 1.5-8. 0 Not Available [facility] (Lab) [address] [place], [address], 04/09/2023 11:11:52 04/09/2004/09/2023 CBC/C OMPLE TE BLD COUNT W/DIF F lymphocytes, absolute count 2.18 x10'3 /uL 1.07-3 .43 Not Available [facility] (Lab) [address] [place], [address], 04/09/2023 11:11:52 04/09/2004/09/2023 CBC/C OMPLE TE BLD COUNT W/DIF F monocytes, absolute count 0.54 x10'3 /uL 0.29-0 .99 Not Available [facility] (Lab) [address] [place], [address], 04/09/2023 11:11:52 04/09/2004/09/2023 CBC/C OMPLE TE BLD COUNT W/DIF F eosinophils, absolute count 0.16 x10'3 /uL 0.02-0 .53 Not Available [facility] (Lab) [address] [place], [address], 04/09/2023 11:11:52 04/09/2004/09/2023 CBC/C OMPLE TE BLD COUNT W/DIF F basophils, absolute count 0.04 x10'3 /uL 0.01-0 .08 Not Available [facility] (Lab) [address] [place], [address], 04/09/2023 11:11:52 04/09/2004/09/2023 CBC/C OMPLE TE BLD COUNT W/DIF F immature granulocytes ,absolute 0.01 x10'3 /uL 0.00-0 .05 Not Available [facility] (Lab) [address] [place], [address], 04/09/2023 11:11:52 04/09/2004/09/2023 CBC/C OMPLE TE BLD COUNT W/DIF F nucleated red blood cells 0.0 % -0 Not Available [facility] (Lab) [address] [place], [address], 04/09/2023 11:11:52 04/09/2004/09/2023 CBC/C OMPLE TE BLD COUNT W/DIF F NRBC# 0.00 x10'3 /uL Not Available [facility] (Lab) [address] [place], [address], 04/09/2023 11:11:52 04/09/2004/09/2023 T4 FREE free T4 1.81 NG/dL 0.78-2 .19 Not Available [facility] (Lab) [address] [place], [address], 04/09/2023 12:05:43 04/09/2004/09/2023 TSH thyroid-stim ulating hormone <0.015 uIU/m L 0.465- 4.680 low Not Available [facility] (Lab) [address] [place], [address], 04/09/2023 13:30:26 04/09/2004/09/2023 LIPID PANEL cholesterol 172 mg/dL 140-19 9 [facility] BALTAZAR NSUS RECOM MENDA TION FOR MINI STERO L: ADULT CHILD LOW RISK: <200 <170 BORDE RLINE : <200- 239 ----- HIGH RISK: >240 >200 Not Available [facility] (Lab) [address] [place], [address], 04/09/2023 13:31:12 04/09/2004/09/2023 LIPID PANEL triglyceride s 122 mg/dL 0-150 NIH BALTAZAR NSUS REPOR T RECOM MENDA TION FOR TRIGL YCERI SUZIE: ADULT CHILD LOW RISK: <150 ----- BODER LINE: 150-1 99 ----- HIGH RISK: >200 ----- Not Available [facility] (Lab) [address] [place], [address], 04/09/2023 13:31:12 04/09/20 23 04/09/2023 LIPID PANEL HDL cholesterol 55 mg/dL 40- Not Available [facility] (Lab) [address] [place], [address], 04/09/2023 13:31:12 04/09/20 23 04/09/2023 LIPID PANEL LDL cholesterol, calculated 93 mg/dL [...] WILL NOT BE REPOR SRINI. Not Available [facility] (Lab) [address] [place], [address], 04/09/2023 13:31:12 04/09/2004/09/2023 COMPR EHENS LALITHA METAB OLIC PANEL sodium 140 mmol/ L 137-14 5 Not Available [facility] (Lab) [address] [place], [address], 04/09/2023 13:31:28 04/09/20 23 04/09/2023 COMPR EHENS LALITHA METAB OLIC PANEL potassium 3.9 mmol/ L 3.5-5. 1 Not Available [facility] (Lab) [address] [place], [address], 04/09/2023 13:31:28 04/09/2004/09/2023 COMPR EHENS LALITHA METAB OLIC PANEL chloride 110 mmol/ L 98-107 high Not Available [facility] (Lab) [address] [place], [address], 04/09/2023 13:31:28 04/09/20 23 04/09/2023 COMPR EHENS LALITHA METAB OLIC PANEL carbon dioxide 25 mmol/ L 22-30 Not Available [facility] (Lab) [address] [place], [address], 04/09/2023 13:31:28 04/09/20 23 04/09/2023 COMPR EHENS LALITHA METAB OLIC PANEL anion gap 8.9 mmol/ L 14-22 low Not Available [facility] (Lab) [address] [place], [address], 04/09/2023 13:31:28 04/09/20 23 04/09/2023 COMPR EHENS LAILTHA METAB OLIC PANEL glucose 99 mg/dL 70-99 Not Available [facility] (Lab) [address] [place], [address], 04/09/2023 13:31:28 04/09/20 23 04/09/2023 COMPR EHENS LALITHA METAB OLIC PANEL BUN 23 mg/dL 8-19 high Not Available [facility] (Lab) [address] [place], [address], 04/09/2023 13:31:28 04/09/2004/09/2023 COMPR EHENS LALITHA METAB OLIC PANEL creatinine 0.55 mg/dL 0.66-1 .25 low Not Available [facility] (Lab) [address] [place], [address], 04/09/2023 13:31:28 04/09/20 23 04/09/2023 COMPR EHENS LALITHA METAB OLIC PANEL GFR >60 Refer ence Range : [place] ge GFR Healt hy Adult : >60 [...] or ethni c subgr oups, such as Hisar nics. Outsi de the valid ated colin [...] calcu lator is avail able on the NKF websi te: https ://edil ayers.be ernst/pr marisoless ional s/kdo qi/gf r_cal culat or Not Available [facility] (Lab) [address] [place], [address], 04/09/2023 13:31:28 04/09/2004/09/2023 COMPR EHENS LALITHA METAB OLIC PANEL alkaline phosphatase 87 U/L 38-126 Not Available [facility] (Lab) [address] [place], [address], 04/09/2023 13:31:28 04/09/2004/09/2023 COMPR EHENS LALITHA METAB OLIC PANEL alanine aminotransfe rase 24 U/L 0-35 Not Available [facility] (Lab) [address] [place], [address], 04/09/2023 13:31:28 04/09/2004/09/2023 COMPR EHENS LALITHA METAB OLIC PANEL aspartate aminotransfe rase 28 U/L 15-37 Not Available [facility] (Lab) [address] [place], [address], 04/09/2023 13:31:28 04/09/2004/09/2023 COMPR EHENS LALITHA METAB OLIC PANEL bilirubin, total 0.40 mg/dL 0.20-1 .30 Not Available [facility] (Lab) [address] [place], [address], 04/09/2023 13:31:28 04/09/20 23 04/09/2023 COMPR EHENS LALITHA METAB OLIC PANEL calcium 9.9 mg/dL 8.4-10 .2 Not Available [facility] (Lab) [address] [place], [address], 04/09/2023 13:31:28 04/09/20 23 04/09/2023 COMPR EHENS LALITHA METAB OLIC PANEL total protein 6.4 g/dL 6.3-8. 2 Not Available [facility] (Lab) [address] [place], [address], 04/09/2023 13:31:28 04/09/20 23 04/09/2023 COMPR EHENS LALITHA METAB OLIC PANEL albumin 4.0 g/dL 3.4-5. 0 Not Available [facility] (Lab) [address] [place], [address], 04/09/2023 13:31:28 04/09/20 23 04/09/2023 COMPR EHENS LALITHA METAB OLIC PANEL globulin 2.4 g/dL 2.6-4. 2 low Not Available [facility] (Lab) [address] [place], [address], 04/09/2023 13:31:28 04/09/20 23 04/09/2023 COMPR EHENS LALITHA METAB OLIC PANEL A/G ratio 1.7 ratio 1.0-2. 0 Not Available [facility] (Lab) [address] [place], [address], 04/09/2023 13:31:28 04/09/20 23 04/09/2023 VITAM IN D 25-HY DROXY [id number] 39.9 NG/mL 30-100 Vitam in D Statu s: Defic ient: <20 ng/mL Insuf ficie nt: 20-29 ng/mL Suffi cient : 30-10 0 ng/mL Not Available [facility] (Lab) [address] [place], [address], 04/09/2023 14:52:04 08/31/19 24 08/31/2023 CBC/C OMPLE TE BLD COUNT W/DIF F white blood cells 5.3 x10'3 /uL 4.2-10 .8 Not Available [facility] (Lab) [address] [place], [address], 08/31/2023 12:32:17 08/31/19 24 08/31/2023 CBC/C OMPLE TE BLD COUNT W/DIF F red blood cells 4.42 x10'6 /uL 3.80-5 .20 Not Available [facility] (Lab) [address] [place], [address], 08/31/2023 12:32:17 08/31/19 24 08/31/2023 CBC/C OMPLE TE BLD COUNT W/DIF F hemoglobin 14.1 g/dL 12.0-1 5.6 Not Available [facility] (Lab) [address] [place], [address], 08/31/2023 12:32:17 08/31/19 24 08/31/2023 CBC/C OMPLE TE BLD COUNT W/DIF F hematocrit 42.0 % 35.7-4 5.7 Not Available [facility] (Lab) [address] [place], [address], 08/31/2023 12:32:17 08/31/19 24 08/31/2023 CBC/C OMPLE TE BLD COUNT W/DIF F mean red cell volume 95.0 fL 82.0-9 9.0 Not Available [facility] (Lab) [address] [place], [address], 08/31/2023 12:32:17 08/31/19 24 08/31/2023 CBC/C OMPLE TE BLD COUNT W/DIF F mean red cell hemoglobin 31.9 pg 27.0-3 3.0 Not Available [facility] (Lab) [address] [place], [address], 08/31/2023 12:32:17 08/31/19 24 08/31/2023 CBC/C OMPLE TE BLD COUNT W/DIF F mean RBC HGB concentratio n 33.6 g/dL 31.0-3 6.0 Not Available [facility] (Lab) [address] [place], [address], 08/31/2023 12:32:17 08/31/19 24 08/31/2023 CBC/C OMPLE TE BLD COUNT W/DIF F red cell distribution width 12.9 % 11.8-1 5.5 Not Available [facility] (Lab) [address] [place], [address], 08/31/2023 12:32:17 08/31/19 24 08/31/2023 CBC/C OMPLE TE BLD COUNT W/DIF F platelets 296 x10'3 /uL 150-40 0 Not Available [facility] (Lab) [address] [place], [address], 08/31/2023 12:32:17 08/31/19 24 08/31/2023 CBC/C OMPLE TE BLD COUNT W/DIF F mean platelet volume 10.4 fL 9.0-12 .4 Not Available [facility] (Lab) [address] [place], [address], 08/31/2023 12:32:17 08/31/19 24 08/31/2023 CBC/C OMPLE TE BLD COUNT W/DIF F neutrophils 49.1 % 39.0-7 2.0 Not Available [facility] (Lab) [address] [place], [address], 08/31/2023 12:32:17 08/31/19 24 08/31/2023 CBC/C OMPLE TE BLD COUNT W/DIF F lymphocytes 37.2 % 16.0-4 7.0 Not Available [facility] (Lab) [address] [place], [address], 08/31/2023 12:32:17 08/31/19 24 08/31/2023 CBC/C OMPLE TE BLD COUNT W/DIF F monocytes 9.8 % 5.0-12 .0 Not Available [facility] (Lab) [address] [place], [address], 08/31/2023 12:32:17 08/31/19 24 08/31/2023 CBC/C OMPLE TE BLD COUNT W/DIF F eosinophils 2.6 % 1.0-7. 0 Not Available [facility] (Lab) [address] [place], [address], 08/31/2023 12:32:17 08/31/19 24 08/31/2023 CBC/C OMPLE TE BLD COUNT W/DIF F basophils 1.1 % 0.0-2. 0 Not Available [facility] (Lab) [address] [place], [address], 08/31/2023 12:32:17 08/31/19 24 08/31/2023 CBC/C OMPLE TE BLD COUNT W/DIF F immature granulocytes 0.2 % 0.00-0 .50 Not Available [facility] (Lab) [address] [place], [address], 08/31/2023 12:32:17 08/31/19 24 08/31/2023 CBC/C OMPLE TE BLD COUNT W/DIF F neutrophils, absolute count 2.61 x10'3 /uL 1.5-8. 0 Not Available [facility] (Lab) [address] [place], [address], 08/31/2023 12:32:17 08/31/19 24 08/31/2023 CBC/C OMPLE TE BLD COUNT W/DIF F lymphocytes, absolute count 1.98 x10'3 /uL 1.07-3 .43 Not Available [facility] (Lab) [address] [place], [address], 08/31/2023 12:32:17 08/31/19 24 08/31/2023 CBC/C OMPLE TE BLD COUNT W/DIF F monocytes, absolute count 0.52 x10'3 /uL 0.29-0 .99 Not Available [facility] (Lab) [address] [place], [address], 08/31/2023 12:32:17 08/31/19 24 08/31/2023 CBC/C OMPLE TE BLD COUNT W/DIF F eosinophils, absolute count 0.14 x10'3 /uL 0.02-0 .53 Not Available [facility] (Lab) [address] [place], [address], 08/31/2023 12:32:17 08/31/19 24 08/31/2023 CBC/C OMPLE TE BLD COUNT W/DIF F basophils, absolute count 0.06 x10'3 /uL 0.01-0 .08 Not Available [facility] (Lab) [address] [place], [address], 08/31/2023 12:32:17 08/31/19 24 08/31/2023 CBC/C OMPLE TE BLD COUNT W/DIF F immature granulocytes ,absolute 0.01 x10'3 /uL 0.00-0 .05 Not Available [facility] (Lab) [address] [place], [address], 08/31/2023 12:32:17 08/31/19 24 08/31/2023 CBC/C OMPLE TE BLD COUNT W/DIF F nucleated red blood cells 0.0 % -0 Not Available [facility] (Lab) [address] [place], [address], 08/31/2023 12:32:17 08/31/19 24 08/31/2023 CBC/C OMPLE TE BLD COUNT W/DIF F NRBC# 0.00 x10'3 /uL Not Available [facility] (Lab) [address] [place], [address], 08/31/2023 12:32:17 08/31/19 24 08/31/2023 URINE DRUG SCREE N amphetamines NEGATI VE Amphe tamin e cut off 500 ng/mL Not Available [facility] (Lab) [address] [place], [address], 08/31/2023 13:22:51 08/31/19 24 08/31/2023 URINE DRUG SCREE N barbiturates NEGATI VE Ellen turat e cut off 200 ng/mL Not Available [facility] (Lab) [address] [place], [address], 08/31/2023 13:22:51 08/31/19 24 08/31/2023 URINE DRUG SCREE N benzodiazepi burt NEGATI VE Benzo diaze pine cut off 200 ng/mL Not Available [facility] (Lab) [address] [place], [address], 08/31/2023 13:22:51 08/31/19 24 08/31/2023 URINE DRUG SCREE N cocaine NEGATI VE Cocai ne metab olite cut off 150 ng/mL Not Available [facility] (Lab) [address] [place], [address], 08/31/2023 13:22:51 08/31/19 24 08/31/2023 URINE DRUG SCREE N fentanyl NEGATI VE Fenta nyl cut off 1.0 ng/mL Not Available [facility] (Lab) [address] [place], [address], 08/31/2023 13:22:51 08/31/19 24 08/31/2023 URINE DRUG SCREE N methadone NEGATI VE Metha done cutof f 300 ng/mL . Not Available [facility] (Lab) [address] [place], [address], 08/31/2023 13:22:51 08/31/19 24 08/31/2023 URINE DRUG SCREE N opiates NEGATI VE Opiat e cut off 300 ng/mL Not Available [facility] (Lab) [address] [place], [address], 08/31/2023 13:22:51 08/31/19 24 08/31/2023 URINE DRUG SCREE N oxycodone POSITI VE abnormal Oxyco done cut off 100 ng/mL Not Available [facility] (Lab) [address] [place], [address], 08/31/2023 13:22:51 08/31/19 24 08/31/2023 URINE DRUG SCREE N phencyclidin e NEGATI VE PCP cut off 25 ng/mL Not Available [facility] (Lab) [address] [place], [address], 08/31/2023 13:22:51 08/31/19 24 08/31/2023 URINE DRUG SCREE N marijuana POSITI VE abnormal Marij uana cut off 50 ng/mL ANY POSIT LALITHA RESUL TS REPOR SRINI ARE UNCON FIRME D, AND SUCH, SHOUL D BE USED FOR MEDIC AL TREAT MENT PURPO SES ONLY. Not Available [facility] (Lab) [address] [place], [address], 08/31/2023 13:22:51 08/31/19 24 08/31/2023 T4 FREE free T4 1.41 NG/dL 0.78-2 .19 Not Available [facility] (Lab) [address] [place], [address], 08/31/2023 13:27:56 08/31/19 24 08/31/2023 COMPR EHENS LALITHA METAB OLIC PANEL sodium 140 mmol/ L 137-14 5 Not Available [facility] (Lab) [address] [place], [address], 08/31/2023 13:31:11 08/31/19 24 08/31/2023 COMPR EHENS LALITHA METAB OLIC PANEL potassium 4.1 mmol/ L 3.5-5. 1 Not Available [facility] (Lab) [address] [place], [address], 08/31/2023 13:31:11 08/31/19 24 08/31/2023 COMPR EHENS LALITHA METAB OLIC PANEL chloride 108 mmol/ L 98-107 high Not Available [facility] (Lab) [address] [place], [address], 08/31/2023 13:31:11 08/31/19 24 08/31/2023 COMPR EHENS LALITHA METAB OLIC PANEL carbon dioxide 27 mmol/ L 22-30 Not Available [facility] (Lab) [address] [place], [address], 08/31/2023 13:31:11 08/31/19 24 08/31/2023 COMPR EHENS LALITHA METAB OLIC PANEL anion gap 9.1 mmol/ L 14-22 low Not Available [facility] (Lab) [address] [place], [address], 08/31/2023 13:31:11 08/31/19 24 08/31/2023 COMPR EHENS LALITHA METAB OLIC PANEL glucose 94 mg/dL 70-99 Not Available [facility] (Lab) [address] [place], [address], 08/31/2023 13:31:11 08/31/19 24 08/31/2023 COMPR EHENS LALITHA METAB OLIC PANEL BUN 17 mg/dL 8-19 Not Available [facility] (Lab) [address] [place], [address], 08/31/2023 13:31:11 08/31/19 24 08/31/2023 COMPR EHENS LALITHA METAB OLIC PANEL creatinine 0.57 mg/dL 0.66-1 .25 low Not Available [facility] (Lab) [address] [place], [address], 08/31/2023 13:31:11 08/31/19 24 08/31/2023 COMPR EHENS LALITHA METAB OLIC PANEL GFR >60 Refer ence Range : [place] ge GFR Healt hy Adult : >60 [...] calcu lator is avail able on the [facility] websi te: https ://edil elder.elisabet ayers.o klever/pr ofess ional s/kdo qi/gf r_cal culat or Not Available [facility] (Lab) [address] [place], [address], 08/31/2023 13:31:11 08/31/19 24 08/31/2023 COMPR EHENS LALITHA METAB OLIC PANEL alkaline phosphatase 93 U/L 38-126 Not Available [facility] (Lab) [address] [place], [address], 08/31/2023 13:31:11 08/31/19 24 08/31/2023 COMPR EHENS LALITHA METAB OLIC PANEL alanine aminotransfe rase 24 U/L 0-35 Not Available [facility] (Lab) [address] [place], [address], 08/31/2023 13:31:11 08/31/19 24 08/31/2023 COMPR EHENS LALITHA METAB OLIC PANEL aspartate aminotransfe rase 33 U/L 15-37 Not Available [facility] (Lab) [address] [place], [address], 08/31/2023 13:31:11 08/31/19 24 08/31/2023 COMPR EHENS LALITHA METAB OLIC PANEL bilirubin, total 0.50 mg/dL 0.20-1 .30 Not Available [facility] (Lab) [address] [place], [address], 08/31/2023 13:31:11 08/31/19 24 08/31/2023 COMPR EHENS LALITHA METAB OLIC PANEL calcium 9.7 mg/dL 8.4-10 .2 Not Available [facility] (Lab) [address] [place], [address], 08/31/2023 13:31:11 08/31/19 24 08/31/2023 COMPR EHENS LALITHA METAB OLIC PANEL total protein 6.5 g/dL 6.3-8. 2 Not Available [facility] (Lab) [address] [place], [address], 08/31/2023 13:31:11 08/31/19 24 08/31/2023 COMPR EHENS LALITHA METAB OLIC PANEL albumin 4.1 g/dL 3.4-5. 0 Not Available [facility] (Lab) [address] [place], [address], 08/31/2023 13:31:11 08/31/19 24 08/31/2023 COMPR EHENS LALITHA METAB OLIC PANEL globulin 2.4 g/dL 2.6-4. 2 low Not Available [facility] (Lab) [address] [place], [address], 08/31/2023 13:31:11 08/31/19 24 08/31/2023 COMPR EHENS LALITHA METAB OLIC PANEL A/G ratio 1.7 ratio 1.0-2. 0 Not Available [facility] (Lab) [address] [place], [address], 08/31/2023 13:31:11 08/31/19 24 08/31/2023 LIPID PANEL cholesterol 130 mg/dL 140-19 9 low NIH BALTAZAR NSUS RECOM MENDA TION FOR MINI STERO L: ADULT CHILD LOW RISK: <200 <170 BORDE RLINE : <200- 239 ----- HIGH RISK: >240 >200 Not Available [facility] (Lab) [address] [place], [address], 08/31/2023 13:31:14 08/31/19 24 08/31/2023 LIPID PANEL triglyceride s 83 mg/dL 0-150 NIH BALTAZAR NSUS REPOR T RECOM MENDA TION FOR TRIGL YCERI SUZIE: ADULT CHILD LOW RISK: <150 ----- BODER LINE: 150-1 99 ----- HIGH RISK: >200 ----- Not Available [facility] (Lab) [address] [place], [address], 08/31/2023 13:31:14 08/31/19 24 08/31/2023 LIPID PANEL HDL cholesterol 59 mg/dL 40- Not Available [facility] (Lab) [address] [place], [address], 08/31/2023 13:31:14 08/31/19 24 08/31/2023 LIPID PANEL [...] WILL NOT BE REPOR SRINI. Not Available [facility] (Lab) [address] [place], [address], 08/31/2023 13:31:14 08/31/19 24 08/31/2023 TSH thyroid-stim ulating hormone <0.015 uIU/m L 0.465- 4.680 low Not Available [facility] (Lab) [address] [place], [address], 08/31/2023 13:39:41 03/21/20 24 03/21/2024 CREAT INE KINAS E/CPK TOTAL creatine kinase 93 U/L 30-135 Not Available [facility] (Lab) [address] [place], [address], 03/21/2024 12:12:08 03/21/20 24 03/21/2024 LIPID PANEL cholesterol 287 mg/dL 140-19 9 high NIH BALTAZAR NSUS RECOM MENDA TION FOR MINI STERO L: ADULT CHILD LOW RISK: <200 <170 BORDE RLINE : <200- 239 ----- HIGH RISK: >240 >200 Not Available [facility] (Lab) [address] [place], [address], 03/21/2024 12:12:19 03/21/2003/21/2024 LIPID PANEL triglyceride s 131 mg/dL 0-150 NIH BALTAZAR NSUS REPOR T RECOM MENDA TION FOR TRIGL YCERI SUZIE: ADULT CHILD LOW RISK: <150 ----- BODER LINE: 150-1 99 ----- HIGH RISK: >200 ----- Not Available [facility] (Lab) [address] [place], [address], 03/21/2024 12:12:19 03/21/2003/21/2024 LIPID PANEL HDL cholesterol 61 mg/dL 40- Not Available [facility] (Lab) [address] [place], [address], 03/21/2024 12:12:19 03/21/2003/21/2024 LIPID PANEL LDL cholesterol, calculated 200 mg/dL [...] WILL NOT BE REPOR SRINI. Not Available [facility] (Lab) [address] [place], [address], 03/21/2024 12:12:19 03/21/20 24 03/21/2024 COMPR EHENS LALITHA METAB OLIC PANEL sodium 139 mmol/ L 137-14 5 Not Available [facility] (Lab) [address] [place], [address], 03/21/2024 12:12:28 03/21/20 24 03/21/2024 COMPR EHENS LALITHA METAB OLIC PANEL potassium 4.0 mmol/ L 3.5-5. 1 Not Available [facility] (Lab) [address] [place], [address], 03/21/2024 12:12:28 03/21/20 24 03/21/2024 COMPR EHENS LALITHA METAB OLIC PANEL chloride 110 mmol/ L 98-107 high Not Available [facility] (Lab) [address] [place], [address], 03/21/2024 12:12:28 03/21/20 24 03/21/2024 COMPR EHENS LALITHA METAB OLIC PANEL carbon dioxide 25 mmol/ L 22-30 Not Available [facility] (Lab) [address] [place], [address], 03/21/2024 12:12:28 03/21/20 24 03/21/2024 COMPR EHENS LALITHA METAB OLIC PANEL anion gap 8.0 mmol/ L 14-22 low Not Available [facility] (Lab) [address] [place], [address], 03/21/2024 12:12:28 03/21/20 24 03/21/2024 COMPR EHENS LALITHA METAB OLIC PANEL glucose 99 mg/dL 70-99 Not Available [facility] (Lab) [address] [place], [address], 03/21/2024 12:12:28 03/21/20 24 03/21/2024 COMPR EHENS LALITHA METAB OLIC PANEL BUN 16 mg/dL 8-19 Not Available [facility] (Lab) [address] [place], [address], 03/21/2024 12:12:28 03/21/20 24 03/21/2024 COMPR EHENS LALITHA METAB OLIC PANEL creatinine 0.66 mg/dL 0.66-1 .25 Not Available [facility] (Lab) [address] [place], [address], 03/21/2024 12:12:28 03/21/20 24 03/21/2024 COMPR EHENS LALITHA METAB OLIC PANEL GFR >60 Refer ence Range : [place] ge GFR Healt hy Adult : >60 [...] or ethni c subgr oups, such as [facility] nics. Outsi de the valid ated colin [...] calcu lator is avail able on the F websi te: https ://edil w.elisabet ayers.o rg/pr ofess ional s/kdo qi/gf r_cal culat or Not Available [facility] (Lab) [address] [place], [address], 03/21/2024 12:12:28 03/21/20 24 03/21/2024 COMPR EHENS LALITHA METAB OLIC PANEL alkaline phosphatase 101 U/L 38-126 Not Available [facility] (Lab) [address] [place], [address], 03/21/2024 12:12:28 03/21/20 24 03/21/2024 COMPR EHENS LALITHA METAB OLIC PANEL alanine aminotransfe rase 30 U/L 0-35 Not Available [facility] (Lab) [address] [place], [address], 03/21/2024 12:12:28 03/21/20 24 03/21/2024 COMPR EHENS LALITHA METAB OLIC PANEL aspartate aminotransfe rase 40 U/L 15-37 high Not Available [facility] (Lab) [address] [place], [address], 03/21/2024 12:12:28 03/21/20 24 03/21/2024 COMPR EHENS LALITHA METAB OLIC PANEL bilirubin, total 0.50 mg/dL 0.20-1 .30 Not Available [facility] (Lab) [address] [place], [address], 03/21/2024 12:12:28 03/21/20 24 03/21/2024 COMPR EHENS LALITHA METAB OLIC PANEL calcium 9.6 mg/dL 8.4-10 .2 Not Available [facility] (Lab) [address] [place], [address], 03/21/2024 12:12:28 03/21/20 24 03/21/2024 COMPR EHENS LALITHA METAB OLIC PANEL total protein 7.1 g/dL 6.3-8. 2 Not Available [facility] (Lab) [address] [place], [address], 03/21/2024 12:12:28 03/21/20 24 03/21/2024 COMPR EHENS LALITHA METAB OLIC PANEL albumin 4.4 g/dL 3.0-4. 4 Not Available [facility] (Lab) [address] [place], [address], 03/21/2024 12:12:28 03/21/20 24 03/21/2024 COMPR EHENS LALITHA METAB OLIC PANEL globulin 2.7 g/dL 2.6-4. 2 Not Available [facility] (Lab) [address] [place], [address], 03/21/2024 12:12:28 03/21/20 24 03/21/2024 COMPR EHENS LALITHA METAB OLIC PANEL A/G ratio 1.6 ratio 1.0-2. 0 Not Available [facility] (Lab) [address] [place], [address], 03/21/2024 12:12:28 03/21/20 24 03/21/2024 T4 FREE free T4 1.34 NG/dL 0.78-2 .19 Not Available [facility] (Lab) [address] [place], [address], 03/21/2024 12:32:40 03/21/20 24 03/21/2024 TSH thyroid-stim ulating hormone 0.088 uIU/m L 0.465- 4.680 low Not Available [facility] (Lab) [address] [place], [address], 03/21/2024 12:37:30 09/18/19 25 09/17/2024 LIPID PANEL , [place] cholesterol, total 166 mg/dL <200 normal Not Available [employer] [facility] [address] [address] [address] [place], [address], 09/17/2024 21:39:15 09/18/19 25 09/17/2024 LIPID PANEL , [place] HDL cholesterol 66 mg/dL > or = 50 normal Not Available [address] [address] [place], [address], 09/17/2024 21:39:15 09/18/1909/17/2024 LIPID PANEL , [place] triglyceride s 90 mg/dL <150 normal Not Available [employer] [address] [address] [facility] [facility] [place], [address], 09/17/2024 21:39:15 09/18/1909/17/2024 LIPID PANEL , [place] LDL-choleste rol 82 mg/dL _(suzie c) normal Refer ence range : <100 Yassine able range <100 mg/dL for prima ry preve ntion ; <70 mg/dL for patie nts with CHD or diabe tic patie nts with > or = 2 CHD risk facto rs. LDL-C is now calcu lated using the Catrina farah-Hop kins coleenu juani n, which is a valid ated novel metho d provi ding myra r accur acy than the Fried elba equat ion in the estim ation of LDL-C . Catrina farah SS et al. BETTY. 2013; 310(1 9): 2061- 2068 (http ://ed ucati on.Qu Josephine Talkito. com/f aq/FA Q164) Not Available [address] [address] [place], [address], 09/17/2024 21:39:15 09/18/1909/17/2024 LIPID PANEL , [place] chol/HDLC ratio 2.5 (calc ) <5.0 normal Not Available [employer] [address], [address], 09/17/2024 21:39:15 09/18/1909/17/2024 LIPID PANEL , [place] non HDL cholesterol 100 mg/dL _(suzie c) <130 normal For patie nts with diabe francia plus 1 major ASCVD risk facto r, treat ing to a non-H DL-C goal of <100 mg/dL (LDL- C of <70 mg/dL ) is venita parra optio n. Not Available [address], [address], 09/17/2024 21:39:15 09/18/19 25 09/17/2024 COMPR EHENS LALITHA METAB OLIC PANEL glucose 98 mg/dL 65-99 normal Fasti ng refer ence inter lorrie Not Available [address], [address], 09/17/2024 21:39:16 09/18/19 25 09/17/2024 COMPR EHENS LALITHA METAB OLIC PANEL urea nitrogen (BUN) 15 mg/dL 7-25 normal Not Available [address], [address], 09/17/2024 21:39:16 09/18/19 25 09/17/2024 COMPR EHENS LALITHA METAB OLIC PANEL creatinine 0.63 mg/dL 0.50-1 .05 normal Not Available [address], [address], 09/17/2024 21:39:16 09/18/19 25 09/17/2024 COMPR EHENS LALITHA METAB OLIC PANEL eGFR 100 mL/mi n/1.7 3m2 > or = 60 normal Not Available [address] [place], [address], 09/17/2024 21:39:16 09/18/19 25 09/17/2024 COMPR EHENS LALITHA METAB OLIC PANEL BUN/creatini ne ratio SEE NOTE: (calc ) 6-22 Not Repor srini: BUN and Creat inine are withi n refer ence range . Not Available [address], [address], 09/17/2024 21:39:16 09/18/19 25 09/17/2024 COMPR EHENS LALITHA METAB OLIC PANEL sodium 142 mmol/ L 135-14 6 normal Not Available [address], [address], 09/17/2024 21:39:16 09/18/19 25 09/17/2024 COMPR EHENS LALITHA METAB OLIC PANEL potassium 4.0 mmol/ L 3.5-5. 3 normal Not Available [address], [address], 09/17/2024 21:39:16 09/18/19 25 09/17/2024 COMPR EHENS LALITHA METAB OLIC PANEL chloride 105 mmol/ L 98-110 normal Not Available [address], [address], 09/17/2024 21:39:16 09/18/19 25 09/17/2024 COMPR EHENS LALITHA METAB OLIC PANEL carbon dioxide 29 mmol/ L 20-32 normal Not Available [address], [address], 09/17/2024 21:39:16 09/18/19 25 09/17/2024 COMPR EHENS LALITHA METAB OLIC PANEL calcium 9.8 mg/dL 8.6-10 .4 normal Not Available [address], [address], 09/17/2024 21:39:16 09/18/19 25 09/17/2024 COMPR EHENS LALITHA METAB OLIC PANEL protein, total 6.9 g/dL 6.1-8. 1 normal Not Available [address], [address], 09/17/2024 21:39:16 09/18/19 25 09/17/2024 COMPR EHENS LALITHA METAB OLIC PANEL albumin 4.6 g/dL 3.6-5. 1 normal Not Available [address], [address], 09/17/2024 21:39:16 09/18/19 25 09/17/2024 COMPR EHENS LALITHA METAB OLIC PANEL globulin 2.3 g/dL_ (calc ) 1.9-3. 7 normal Not Available [address], [address], 09/17/2024 21:39:16 09/18/19 25 09/17/2024 COMPR EHENS LALITHA METAB OLIC PANEL albumin/glob ulin ratio 2.0 (calc ) 1.0-2. 5 normal Not Available [address], [address], 09/17/2024 21:39:16 09/18/19 25 09/17/2024 COMPR EHENS LALITHA METAB OLIC PANEL bilirubin, total 0.4 mg/dL 0.2-1. 2 normal Not Available [address], [address], 09/17/2024 21:39:16 09/18/19 25 09/17/2024 COMPR EHENS LALITHA METAB OLIC PANEL alkaline phosphatase 88 U/L 37-153 normal Not Available [address], [address], 09/17/2024 21:39:16 09/18/19 25 09/17/2024 COMPR EHENS LALITHA METAB OLIC PANEL AST 24 U/L 10-35 normal Not Available [address], [address], 09/17/2024 21:39:16 09/18/19 25 09/17/2024 COMPR EHENS LALITHA METAB OLIC PANEL ALT 20 U/L 6-29 normal Not Available [address], [address], 09/17/2024 21:39:16 09/18/19 25 09/17/2024 CBC (INCL UDES DIFF/ PLT) white blood cell count 10.8 thous and/u L 3.8-10 .8 normal Not Available [address], [address], 09/17/2024 21:39:18 09/18/19 25 09/17/2024 CBC (INCL UDES DIFF/ PLT) red blood cell count 4.85 linda on/uL 3.80-5 .10 normal Not Available [address], [address], 09/17/2024 21:39:18 09/18/19 25 09/17/2024 CBC (INCL UDES DIFF/ PLT) hemoglobin 15.3 g/dL 11.7-1 5.5 normal Not Available [address], [address], 09/17/2024 21:39:18 09/18/19 25 09/17/2024 CBC (INCL UDES DIFF/ PLT) hematocrit 46.4 % 35.0-4 5.0 high Not Available [address], [address], 09/17/2024 21:39:18 09/18/19 25 09/17/2024 CBC (INCL UDES DIFF/ PLT) MCV 95.7 fL 80.0-1 00.0 normal Not Available [address], [address], 09/17/2024 21:39:18 09/18/19 25 09/17/2024 CBC (INCL UDES DIFF/ PLT) MCH 31.5 pg 27.0-3 3.0 normal Not Available [address], [address], 09/17/2024 21:39:18 09/18/19 25 09/17/2024 CBC (INCL UDES DIFF/ PLT) MCHC 33.0 g/dL 32.0-3 6.0 normal For adult s, a sligh t decre ase in the calcu lated MCHC value (in the range of 30 to 32 g/dL) is most likel y not clini lynn renteria t; jaky er, it shoul d be inter prete d with cauti on in [facility] n with other red cell colin eters and the patie nt's clini suzie condi tion. Not Available [facility] [address], [address], 09/17/2024 21:39:18 09/18/19 25 09/17/2024 CBC (INCL UDES DIFF/ PLT) RDW 12.0 % 11.0-1 5.0 normal Not Available [facility] [address], [address], 09/17/2024 21:39:18 09/18/19 25 09/17/2024 CBC (INCL UDES DIFF/ PLT) platelet count 333 thous and/u L 140-40 0 normal Not Available [address], [address], 09/17/2024 21:39:18 09/18/19 25 09/17/2024 CBC (INCL UDES DIFF/ PLT) MPV 10.3 fL 7.5-12 .5 normal Not Available [address], [address], 09/17/2024 21:39:18 09/18/1909/17/2024 CBC (INCL UDES DIFF/ PLT) absolute neutrophils 8273 cells /uL 1500-7 800 high Not Available [facility] [address], [address], 09/17/2024 21:39:18 09/18/19 25 09/17/2024 CBC (INCL UDES DIFF/ PLT) absolute lymphocytes 1566 cells /uL 850-39 00 normal Not Available [employer] [address], [address], 09/17/2024 21:39:18 09/18/19 25 09/17/2024 CBC (INCL UDES DIFF/ PLT) absolute monocytes 756 cells /uL 200-95 0 normal Not Available [address], [address], 09/17/2024 21:39:18 09/18/19 25 09/17/2024 CBC (INCL UDES DIFF/ PLT) absolute eosinophils 130 cells /uL 15-500 normal Not Available [address], [address], 09/17/2024 21:39:18 09/18/19 25 09/17/2024 CBC (INCL UDES DIFF/ PLT) absolute basophils 76 cells /uL 0-200 normal Not Available [address], [address], 09/17/2024 21:39:18 09/18/19 25 09/17/2024 CBC (INCL UDES DIFF/ PLT) neutrophils 76.6 % normal Not Available [address], [address], 09/17/2024 21:39:18 09/18/19 25 09/17/2024 CBC (INCL UDES DIFF/ PLT) lymphocytes 14.5 % normal Not Available [address], [address], 09/17/2024 21:39:18 09/18/1909/17/2024 CBC (INCL UDES DIFF/ PLT) monocytes 7.0 % normal Not Available [address], [address], 09/17/2024 21:39:18 09/18/19 25 09/17/2024 CBC (INCL UDES DIFF/ PLT) eosinophils 1.2 % normal Not Available [address], [address], 09/17/2024 21:39:18 09/18/19 25 09/17/2024 CBC (INCL UDES DIFF/ PLT) basophils 0.7 % normal Not Available [address], [address], 09/17/2024 21:39:18 09/18/19 25 09/17/2024 T4, FREE T4, free 2.3 NG/dL 0.8-1. 8 high Not Available [facility] [address] [address] [place], [address], 09/17/2024 21:39:19 09/18/19 25 09/17/2024 TSH TSH 0.05 mIU/L 0.40-4 .50 low Not Available [facility] [address], [address], 09/17/2024 21:39:20 03/15/20 23 03/15/2023 DEXA, axial skele ton [facility] [address] [address] Patien t Name: DEBBIE CUTLER Access ion #: [id number] Sex: F : 1959 4 Dictat ed By: Emery steven Attend ing Physic arely: EVANS DUNN CE Orderi Physic arely: EVANS DUNN CE Exam Date: 2022 09:34 AM Exam Name: XR DEXA-H IPS PELVIS SPINE Admitt ing Diagno sis(es ): CLINIC AL HISTOR Y: Postme nopaus al screen ing for osteop orosis . TECHNI QUE: The study was perfor med using a IS Decisions Unit. Lumbar spine and proxim al femora [...] at 2022 12:19: 32 PM Page [email or web address] [place] [address] (Imaging) [address] [place], [address], 03/15/2023 17:41:28 03/15/20 23 03/15/2023 screglenroy vines t tejas, bilat [facility] [address] [place] [address] [phone] Patien t Name: DEBBIE CUTLER [place] Access ion #: [id number] Sex: F : 1959 4 Dictat ed By: Miguel Oh Attend ing Physic arely: EVANS DUNN CE Orderi Physic arely: EVANS DUNN CE Exam Date: 2022 09:34 AM Exam Name: MG PHELAN BREAST TEJAS BILAT Admitt ing Diagno sis(es [...] this mammog alexandria was mailed to the patien t Electr onical ly Signed by: Miguel Oh at 2022 12:28: 18 PM Page [address] (Imaging) [address] [place], [address], 03/15/2023 17:41:53 09/17/19 25 09/16/2024 US, echoc ardio gram No observ ation record ed. [address] [facility] [address] [facility] [address], [place], [address], 09/23/2024 10:37:41 11/29/19 25 11/28/2024 MAMMO , scree deborah, bilat eral No observ ation record ed. [address], [place], [address], 11/28/2024 16:16:17 Result Notes Documentation Provider Name and Address Organization Details Recorded Time Dexa, Axial Skeleton : [facility] [address] [place], [place] [id number] Patient Name: LUAM CUTLER Sex: F : 1960 Dictated By: Sinan Duval Attending Physician: RAIMUNDO DUNN Ordering Physician: RAIMUNDO DUNN Exam Date: 03/15/2023 09:34 AM Exam Name: XR DEXA-HIPS PELVIS SPINE Admitting Diagnosis(es): CLINICAL HISTORY: Postmenopausal screening for osteoporosis. TECHNIQUE: The study was performed using a IS Decisions Unit. Lumbar spine and proximal femoral evaluations were evaluated in the frontal projections. COMPARISON: Prior DEXA scan dated 05/03/2021. FINDINGS: L1-L4 demonstrates a bone mineral density of 0.978 g/cm2 with a T-score of -1.7, consistent with osteopenia. There has been a 2.6% interval increase in bone mineral density in the lumbar spine compared to the prior exam. Left femoral neck evaluation demonstrates a bone mineral density of 0.821 g/cm2 with a T-score of -1.6, consistent with osteopenia. Right femoral neck evaluation demonstrates a bone mineral density of 0.791 g/cm2 with a T-score of -1.8 within normal limits. There has been an interval 0.2% decrease in total mean proximal femoral bone mineral density compared to the prior exam. Estimated total body fat is 42.8%. BMI is 23.9. IMPRESSION: Bone mineral density is consistent with osteopenia based on lowest T score as described above. Page 1 Raimundo Dunn MD [address] [place] [address], [place], [address], [facility] [employer] 03/15/2023 17:41:28 Problems Name Problem SNOMED Code Status Onset Date Resolution Date Notes Provider Name and Address Organization Details Recorded Time Spinal enthesopa thy 63262930 Active Not Available [facility] 3 03:21:52 Irritable bowel syndrome 34033613 Active Not Available [facility] 3 03:21:52 Disorder of sacrum 52028589 Completed Not Available [facility] 3 03:21:52 Acquired trigger finger 1761392 Active Not Available [facility] 3 03:21:52 Neuralgia 22418374 Completed Not Available [facility] 3 03:21:52 Localized , primary osteoarth ritis of the hand 097843843 Active Not Available [facility] 3 03:21:52 Abdominal pain 55179625 Active Not Available [facility] 3 03:21:52 Gastroeso phageal reflux disease 276203393 Active Not Available [facility] 3 03:21:52 Localized , primary osteoarth ritis of the wrist 312186156 Active Not Available [facility] 3 03:21:53 Depressiv e disorder 85649479 Active Not Available [facility] 3 03:21:53 Hypothyro idism 59665294 Active Not Available [facility] 3 03:21:53 Residual foreign body in soft tissue 5227112 Completed Not Available [facility] 3 03:21:53 Disorder of coccyx 71377628 Completed Not Available [facility] 3 03:21:53 Pain of elbow region 68637855 Completed Not Available [facility] 3 03:21:53 Hyperchol esterolem ia 82436367 Active 2016 Not Available [facility] 3 03:21:52 Kidney stone 97372829 Active 2016 Not Available [facility] 3 03:21:54 Chronic pain syndrome 078919447 Active 2018 Not Available [facility] 3 03:21:53 Complex regional pain syndrome of upper limb 942457532 Active 2018 Not Available [facility] 3 03:21:53 Fracture of metacarpa l bone 583334672 Active 2019 Not Available [facility] 3 03:21:52 Renewal of prescript ion Active 2021 Not Available [facility] 3 03:21:52 Ulnar nerve entrapmen t at elbow 910806020 Active 2021 Not Available [facility] 3 03:21:52 Impingeme nt syndrome of left shoulder region 92095885999 9104 Active 2021 Not Available [facility] 3 03:21:52 Acute urinary tract infection 315103535 Active 2021 Not Available [facility] 3 03:21:53 Dysuria 35676425 Active 2021 Not Available [facility] 3 03:21:53 Contact dermatiti s caused by urushiol from [facility] carmelita 013652117 Active 2021 Not Available [facility] 3 03:21:52 Vitamin D deficienc y 80855266 Active 2021 Not Available [facility] 3 03:21:53 Nodular fasciitis 279183490 Active 2022 MELIDA Welch, [facility] 3 10:56:55 Essential hypertens ion 17353547 Active 2022 Raimundo Dunn MD [address], [address], [place], [address] , [facility] 3 10:47:46 Fractured nasal bones 411055171 Active 2022 Raimundo Dunn MD [address], [address], [place], [address] , [facility] 3 16:48:30 Senile osteoporo sis 57001517 Active 2022 Ada cuellar, [facility] 3 10:46:53 Eczema 00822916 Active 2024 Raimundo Dunn MD [address], [address], [place], [address] , [facility] 5 11:44:46 Acute pain in face 406533596 Active 2024 Ada Aaron cuellar, [facility] 5 12:12:01 Neck pain 62729375 Active 2024 [facility] 12:13:16 Notes:Some problems listed i n Documents: #[id number], #[id number], #[id number], #[id number] could not be added to this patient's chart. Please review these documents and add these problems to the patient's chart manually as needed. Problem Notes None recorded. Procedures Surgical History Date Name Laterality Status Provider Name and Address Organization Details Recorded Time 08/23/19 Medicare Wellness CPT Code, subsequent completed Jossie Morley RN [facility] 08/23/2023 10:50:05 05/03/20 21 Most Recent Bone Density completed Not Available [facility] 08/23/2022 03:14:17 12/05/19 20 Date of Last Colonoscopy completed Not Available [facility] 08/23/2022 03:14:17 Imaging Results None recorded. Procedure Notes None recorded. Medical Equipment None Reported. Allergies Allergen ID Allergen Name Allergen Category Reaction Reaction Severity Criticality Documentation Date Start Date Code Code System Note Provider Name and Address Organization Details Recorded Time 6232 Neurontin medicatio n hallucina tions Not available Not available 08/23/202219639 8 RxNorm Not Available [facility] 03:34:08 Medications Name Sig Start Date Stop [...] release TAKE 1 CAPSULE BY MOUTH DAILY 01/12 completed Not Available Not Available Not Available aspirin 81 mg tablet,jaime yed release [...] administe red by the provider 04/20 completed [facility]: [phone] Not Available Not Available [...] hours by oral route for 7 days. 01/12 completed Not Available Not Available Not Available Cymbalta 60 mg capsule,del ayed release [...] administe red by the provider 04/20 completed [facility]: [phone] Not Available Not Available Not Available Vitals Date Recorded Body height Body mass index (BMI) Body weight Heart rate Body temperature Oxygen saturation Oxygen saturation in Arterial blood by Pulse oximetry Systolic And Diastolic Provider Name and Address Organization Details Last Updated DateTime 5 160.66 cm 23.7 kg/m2 82705.9 7 g 101 /min 97 [degF] 98 % 98 % 120/70 mm[Hg] [facility] [employer] [facility] 5 11:35:25 Date Recorded Body height Body mass index (BMI) Body weight Heart rate Body temperature Oxygen saturation Oxygen saturation in Arterial blood by Pulse oximetry Systolic And Diastolic Provider Name and Address Organization Details Last Updated DateTime 4 160.02 cm 24.7 kg/m2 75566.1 4 g 71 /min 97.7 [degF] 96 % 96 % 118/72 mm[Hg] MARIA FERNANDA Yanez [facility] [employer] [facility] 4 10:44:04 Date Recorded Body height Body mass index (BMI) Body weight Heart rate Body temperature Oxygen saturation Oxygen saturation in Arterial blood by Pulse oximetry Systolic And Diastolic Provider Name and Address Organization Details Last Updated DateTime 5 160.02 cm 24.3 kg/m2 08326.1 5 g 84 /min 97 [degF] 97 % 97 % 120/78 mm[Hg] [facility] [employer] [facility] 5 11:43:01 Date Recorded Body height Body mass index (BMI) Body weight Body temperature Heart rate Oxygen saturation Oxygen saturation in Arterial blood by Pulse oximetry Systolic And Diastolic Provider Name and Address Organization Details Last Updated DateTime 3 160.02 cm 23.9 kg/m2 49886.9 7 g 98.9 [degF] 97 /min 99 % 99 % 120/70 mm[Hg] Jane Bledsoe MA [facility] [employer] [facility] 3 10:33:15 Date Recorded Body height Body weight Heart rate Body temperature Oxygen saturation Oxygen saturation in Arterial blood by Pulse oximetry Systolic And Diastolic Provider Name and Address Organization Details Last Updated DateTime 4 160.02 cm 87958.0 1 g 75 /min 97.9 [degF] 97 % 97 % 120/76 mm[Hg] MARIA FERNANDA Yanez [facility] 16:47:33 Social History Question Answer Notes LastModified by Organizat ion Details LastModified Time Tobacco Smoking Status Unknown If Ever Smoked Not Available [facility] 08/23/2022 03:02:51 Do You Have An Advance Directive? No [email or web address] Information not available 08/23/2023 In The 14 Days Before Symptom Onset, Have You Had Close Contact With A Laboratory-confi rmed COVID-19 While That Case Was Ill? No [id number] Information not available 08/23/2022 In The 14 Days Before Symptom Onset, Have You Had Close Contact With A Person Who Is Under Investigation For COVID-19 While That Person Was Ill? No [id number] Information not available 08/23/2022 What Type Of Diet Are You Following? REGULAR [email or web address] Information not available 08/23/2023 Have There Been Any Changes To Your Family Or Social Situation? No [email or web address] Information not available 08/23/2023 What Is The Fluoride Status Of Your Home? Unknown Information not available 08/23/2023 Where Do You Live? SingleLevelHouse [email or web address] Information not available 08/23/2023 Are You Able To Care For Yourself? Yes [email or web address] Information not available 08/23/2023 Are You Blind Or Do Yo Have Difficulty Seeing? No [email or web address] Information not available 08/23/2023 Are You Deaf Or Do You Have Serious Difficulty Hearing? No [email or web address] Information not available 08/23/2023 Live Alone Of With Others? With Others [email or web address] Information not available 08/23/2023 Do You Have A Medical Power Of Patient Registrar? No [email or web address] Information not available 08/23/2023 What Was The Date Of Your Most Recent Tobacco Screening? 08/23/2023 [email or web address] Information not available 08/23/2023 Do You Have Any Pets? Yes Information not available 08/23/2023 Do You Use Your Seat Belt Or Car Seat Routinely? Yes [email or web address] Information not available 08/23/2023 Do You Have Smoke And Carbon Monoxide Detectors In Your Home? Yes [email or web address] Information not available 08/23/2023 Have You Recently Traveled Abroad? No [id number] Information not available 08/23/2022 Sex: Unknown Functional Status Question Answer Note LastModified by Organizat ion Details LastModified Time What is your level of alcohol consumption? Occasional [id number] Information not available 08/23/2022 What is your exercise level? Occasional [email or web address] Information not available 08/23/2023 Mental Status None recorded. Family History Relationship Description Onset Age of this Age Resolved Age Notes LastModified by Organization Details LastModified Time Father Family history of malignant neoplasm [id number] Not available 08/23/2022 03:14:23 Father Diabetes mellitus [id number] Not available 08/23/2022 03:14:23 Mother Hypertensive disorder [id number] Not available 08/23/2022 03:14:23 Sister Complication of anesthesia [id number] Not available 08/23/2022 03:14:23 Notes:Mother 67 yea rs old Father 70 years old 1 Brothers 0 Living 3 Sisters 3 Living Mother Hx: COPD Father Hx: Ca of Lung Brother Hx: ASHD (1) , HTN (1) , Ca of Breast (1) , Ca of Uterus (1) Medical History Condition Response BLINDNESS N NERVE DISEASE N RHEUMATIC FEVER N BLADDER PROBLEMS N KIDNEY STONES Y MRSA N OTHER # 1 N POLIO N LUNG DISEASE/DISORDER N RADIATION / CHEMOTHERAPY N COPD N Other # 2 N BLOOD DISEASES N SURGERY N EAR OR HEARING PROBLEMS N MUMPS N DEPRESSION (INCLUDING POST ) Y BOWEL PROBLEMS N STROKE/TIA N ULCERS N BENIGN PROSTATIC HYPERPLASIA N MEASLES N MYOCARDIAL INFARCTION N OBESITY N GERD/NAUSEA Y ANEURYSM N URINARY/BLADDER/KIDNEY PROBLEMS N CORONARY ARTERY DISEASE (CAD) N ADDICTION CONCERNS N ENDOMETRIOSIS N Impotence N USE OF BLOOD THINNERS N SKIN [...] APNEA N CHICKENPOX N INFECTIOUS DISEASE N HEART ARRHYTHMIA N PROSTATE N INSOMNIA N HIGH CHOLESTEROL / HYPERLIPIDEMIA Y HYPERTHYROIDISM N EYE PROBLEMS N NEUROLOGICAL PROBLEMS N EDEMA N CHRONIC PAIN SYNDROME Y HYPOTHYROIDISM Y CAROTID BLOCKAGE N CONSTIPATION N BACK / NECK PROBLEMS N HAVE YOU BEEN HOSPITALIZED OR SEEN IN [facility] ER IN THE PAST YEAR ? Y ATHEROSCLEROSIS N BREAST PROBLEMS N DIALYSIS N ECZEMA N OSTEOPOROSIS N ARTHRITIS Y NO SIGNIFICANT PAST MEDICAL HISTORY N APPENDICITIS N DIABETES, TYPE N BAD TEETH N ENT N HEARTBURN / REFLUX N AUTISM SPECTRUM DISORDER (ASD) N HEPATITIS / LIVER DISEASE N GOUT N SLEEP DISORDER N ALZHEIMER'S DISEASE N Brain Problems N HERPES N DEMENTIA N HEADACHES/MIGRAINES N SEIZURES/EPILEPSY N VASCULAR DISEASE N PACEMAKER N Blood Disorder N DIZZINESS N HEART DISEASE/HEART PROBLEMS N KIDNEY DISEASE N MULTIPLE SCLEROSIS N CARDIAC ARRHYTHMIA N CANCER: SPECIFY N ATRIAL FIBRILLATION N Gall Stones N PULMONARY EMBOLISM N AUTOIMMUNE DISEASE N Gynecological History Statement/Question Response Date of Last Pap Date of Last Mammogram 05/03/2021 Date of Last Colonoscopy 12/05/2019 Most Recent Bone Density 05/03/2021 Obstetrics History GPAL:G 0 P 0 0 0 0 Immunizations Vaccine Type Date Status Note Provider Nam e and Address Organization Details Recorded Time Pneumococcal conjugate PCV20, polysaccharide BIV781 conjugate, adjuvant, PF 5 completed YUE Wetzel - Tammy Sennari [facility] 08/08/2024 12:13:23 COVID-19, mRNA, LNP-S, PF, 100 mcg/0.5mL dose or 50 mcg/0.25mL dose 1 completed Not Available [facility] 12/11/2022 08:42:19 COVID-19, mRNA, LNP-S, PF, 100 mcg/0.5mL dose or 50 mcg/0.25mL dose 1 completed Not Available [facility] 12/11/2022 08:42:19 Influenza, split virus, quadrivalent, preservative 8 completed Not Available [facility] 12/11/2022 08:42:19 pneumococcal polysaccharide PPV23 1 completed Not Available [facility] 12/11/2022 08:42:19 Influenza, split virus, quadrivalent, PF 8 completed Not Available [facility] 12/11/2022 08:42:19 Influenza, split virus, quadrivalent, PF 2 completed Not Available [facility] 12/11/2022 08:42:19 Influenza, split virus, quadrivalent, PF 1 completed Not Available [facility] 12/11/2022 08:42:19 Influenza, split virus, quadrivalent, PF 0 completed Not Available [facility] 12/11/2022 08:42:19 Pneumococcal conjugate PCV 13 6 completed Not Available [facility] 12/11/2022 08:42:19 Past Encounters Encounter ID Performer Location Encounter Start Date Encounter Closed Date Diagnosis/Indication Diagnosis SNOMED-CT Code Diagnosis ICD10 Code Diagnosis Note [id number] S[facility] [place] [address] [place] [address] 09/03/2020 00:00:00 09/03/2020 11:05:08 [id number] Raimundo Dunn MD [facility] [address] [address] 09/27/2020 00:00:00 09/27/2020 15:03:16 [id number] Saeid Nix MD [facility] [place] [address] [place] [address] 10/12/2020 00:00:00 10/12/2020 09:27:40 [id number] Saeid Nix MD [facility] [place] [address] [place] [address] 02/01/2021 00:00:00 02/01/2021 10:46:59 [id number] Saeid Nix MD [facility] [place] [address] [place] [address] 04/05/2021 00:00:00 04/05/2021 09:34:23 [id number] Raimundo Dunn MD [facility] [address] [place] [address] 04/21/2021 00:00:00 04/21/2021 11:19:20 [id number] Saeid Nix MD [facility] [place] [address] [place] [address] 06/07/2021 00:00:00 06/07/2021 11:04:11 [id number] Saeid Nix MD [facility] [place] [address] [place] [address] 08/09/2021 00:00:00 08/09/2021 10:13:02 [id number] Raimundo Dunn MD [facility] [address] [address] 10/20/2021 00:00:00 10/20/2021 11:05:41 [id number] Saeid Nix MD [facility] [place] [address] [facility] [address] [place] [address] 11/08/2021 00:00:00 11/08/2021 10:46:39 [id number] Raimundo Dunn MD [facility] [address] [place] [address] [address] 04/20/2022 00:00:00 04/20/2022 11:20:01 [id number] Raimundo Dunn MD [facility] [address] [address] 10/19/2022 10:22:13 10/19/2022 11:03:01 Essential hypertension 70343833 I10 Gastroesop hageal reflux disease 912341686 K21.9 Hypercholesterolemia 136 91666 E78.00 Hypothyroidism 55014235 E03.9 [id number] Raimundo Dunn MD [facility] [address] [address] 12/04/2022 16:15:07 12/04/2022 16:51:27 Fractured nasal bones 524888928 S02.2XXA [id number] Raimundo Dunn MD [facility] [address] [address] 02/22/2023 10:27:38 02/22/2023 10:52:17 Complex regional pain syndrome of upper limb 782456736 M79.601 Essential hypertension 63603550 I10 Hypercholesterolemia 136 02798 E78.00 Hypothyroidism 65686024 E03.9 Vitamin D deficiency 347 00884 E55.[id number] [facility] Internal Med [facility] [address] [address] 08/23/2023 10:29:19 08/23/2023 11:10:14 Adult health examination 710814828 Z00.00 Screening for disorder 852793231 Z13.9 Chronic pain syndrome 37 9266114 G89.4 Essential hypertension 68997984 I10 Hypercholesterolemia 136 05083 E78.00 Hypothyroidism 51564460 E03.9 Long-term current use of opiate analgesic drug 1701944353 00809 Z79.[id number] [facility] Internal Med [facility] [address] [address] 03/10/2024 16:33:23 03/10/2024 17:15:33 Essential hypertension 52052831 I10 Hypercholesterolemia 136 60902 E78.00 Hypothyroidism 20933479 E03.9 Complex re gional pain syndrome of upper limb 990112654 M79.[id number] [facility] Internal Med [facility] [address] [address] 07/14/2024 11:12:57 07/14/2024 11:49:44 Essential hypertension 70933062 I10 Hypercholesterolemia 136 45468 E78.00 Hypothyroidism 28540191 E03.9 Complex re gional pain syndrome of upper limb 626362702 M79.601 Eczema 05996430 L30.9 [id number] [address] [facility] Internal Med [facility] [address] [address] 01/12/2025 11:33:54 01/12/2025 12:11:18 Complex regional pain syndrome of upper limb 712356202 M79.601 Essential hypertension 52393351 I10 Hypothyroidism 04581580 E03.9 Hypercholesterolemia 136 42299 E78.00 Gastroesop hageal reflux disease 732232401 K21.9 General ex amination of patient 949687811 Z00.00 Health Concerns Section Related Observation LastModified by Organization Detai ls LastModified Time None Recorded Concern Status LastModified by Organization Details LastModified Time None Recorded Advance Directives Directive N: Payers Insurance Date Sequence Insurance Name Policy Number Policy Saldaña Covered Member ID Saldaña Member ID Guarantor Name 01/10/2025 1 [facility] - MEDICARE SOLUTIONS - MEDICARE COMPLETE (MEDICARE REPLACEMENT HMO) [id number] Luma Cutler [id number] Luma Cutler Notes Date Note Type Note Provider Name and Address Organization Details Recorded Time 023 text/ht ml Patient Name: Luma CutlerDate Of Service: January ( 02.22.2023 ): [...] MG (TABLET - ORAL) Once DailyVaccination and Qcoyyzzjmzce7052-96 Abgqqzkgw8603-83 Prevnar 959264-48 Pneumovax 234137-81 Covid ModernaSurgical HistoryLt. Cubital Tunnel, Lt CTS, Lap Cholecystectomy, SplenectomyPreventative Testing Confirmed by Our Gwfmcnh5610/06/2022 ALBUMIN 4.2 G/DL05/03/2021 MAMMOGRAM DEXA SCAN12/05/2019 COLONOSCOPY [...] of Uterus (1) Raimundo Dunn MD [address] [facility], [facility] [address], [place], [address] , [place] [facility] [employer] 02/22/2023 10:42:13 024 text/ht ml Patient Name: Luma HernándezmaurizioDate Of Service: August 23 2023 ( 08.23.2023 [...] Systemic Symptoms:none Medication Reconciliation: from medication list. Qzdxtgnowcz07/02/2023: Upper endoscopy failed to disclose any significant [...] or has seen in the past a Barrel Drainer: No .Pain - Enjoyment of Life - [...] A DayBuspirone 5 mg bid Vaccination and Ecbvjjqytali6483-98 Owhxtrxgr0977-40 Prevnar 13 Gn0895-31 Pneumovax Surgical Qxspsib7914-75 Lt. Cubital Uhxbtz4871-73 Lt KFJ8935-54 Lap Snrrqqpbtlscbdh6233-41 Splenectomy Preventative Ajnnmeg9104/09/2023 ALBUMIN 4.0 G/DL N1 UPPER DJXXDSQXN32/02/2023 COLONOSCOPY ( 5 YEARS ) MAMMOGRAM / DEXA SCAN12/04/2019 HAIC 5.3 % N Social [...] Date: 04/09/2023FREE T4 1.81 0.78-2.19 NG/DLTSH Date: 04/09/2023THYROID-STIMULATING HORMONE <0.015 0.465-4.680 UIU/MLVITAMIN D 25-HYDROXY Date: 04/09/2023VD25OH 39.9 30-100 NG/ML Raimundo Dunn MD [address] [facility], [facility] [address], [place], [address] , [facility] [place] [employer] [facility] 08/23/2023 11:02:27 024 text/ht ml Patient Name: Luma CutlerDate Of Service: Sunday ( 03.10.2024 ): 1960 [...] Systemic Symptoms:none Medication Reconciliation: from medication list. Znmqmidrycw82/02/2023: Upper endoscopy failed to disclose any significant [...] or has seen in the past a Barrel Drainer: No .Pain - Enjoyment of Life - [...] Hcl 5 MG TABLET Bid Vaccination and Yeuvvvnxsvqa6162-54 Dnrkrqmgs6398-96 Prevnar 13 Cx9000-53 Pneumovax Surgical Cukvaof2695-27 Lt. Cubital Cwmzig2920-53 Lt MEA1652-01 Lap Tqqxfdzfnlyuspt5600-18 Splenectomy Preventative Testing( ) 08/31/2023 Albumin 4.1 [...] Hcl 5 MG TABLET Bid Vaccination and Vkcutqyjebpi4202-52 Nthtxnaxl0818-78 Prevnar 13 Ej1616-20 Pneumovax Surgical Xmhmgla3321-42 Lt. Cubital Accxkn7399-81 Lt XQT5487-83 Lap Hqqjorzarrmokzh1605-83 Splenectomy Preventative Testing( ) 08/31/2023 Albumin 4.1 [...] (1) TEST RESULT RANGE UNITSLIPID PANEL Date: 08/31/2023HOLESTEROL 130 140-199 MG/DLTRIGLYCERIDES 83 0-150 MG/DLHDL CHOLESTEROL [...] Date: 08/31/2023FREE T4 1.41 0.78-2.19 NG/DLTSH Date: 08/31/2023THYROID-STIMULATING HORMONE <0.015 0.465-4.680 UIU/ML Raimundo Dunn MD [address] [facility], [facility] [address], [place], [address] , [facility] 03/10/2024 17:12:50 025 text/ht ml Patient Name: Luma HernándezmaurizioDate Of Service: Sunday ( 07.14.2024 ): 1960 [...] Systemic Symptoms:none Medication Reconciliation: from medication list. Sixjwngcnnn20/02/2023: Upper endoscopy failed to disclose any significant [...] MG TABLET Bid Vaccination and Immunization( ) 2001-04 PNEUMOVAX( ) 2024-06 INFLUENZA( ) 2015-06 PREVNAR 13 GC( ) 2015-06 COVID MODERNA( ) 2024-06 PREVNAR 20 Surgical Rqopknw2967-37 Lt. Cubital Qanggc7152-89 Lt TNN3156-64 Lap Iwaxtttbciwbjrt1441-74 Splenectomy Preventative Testing( ) 03/21/2024 Albumin 4.4 [...] of Uterus (1) Raimundo Dunn MD [address] [facility], [facility] [address], [place], [address] , [facility] [employer] 07/14/2024 11:45:38 025 text/ht ml [facility]: [facility]: Sunday ( 01.12.2025 ): 1960 Age: 64 There has been approximately a 2 lb weight gain since 07/14/2024. This represents approximately a 1.5% change in weight. Weight change attributable to lifestyle changes. Vital Signs:Blood Pressure: Sitting Rt. Arm 120/78Pulse: Sitting 84 /min and RegularRespiratory Rate: 16Height 63 in or 1.6 mWeight 137 lb or 62.1 kgBMI 24.3Temperature: 97 F or 36.1 CPulse Oximetry: 97 % at rest on no oxygen Chief Complaint: Addressed in HPI Problems or conditions discussed in the HPI were the only ones reviewed during the encounter.Only social and family history addressed in the HPI were reviewed during this encounter. A significant, separate E/M service was performed to evaluate the current and new problems. Attendants(s) + NoneConstitutional and Systemic Symptoms:none Medication Reconciliation: from medication list. Qytosjabjmt62/02/2023: Upper endoscopy failed to disclose any significant abnormalities. Small hiatus hernia was noted.03/26/2023: Colonoscopy demonstrated a small 4 mm polyp in the transverse colon. Repeat in five years 09-16-2024: Echocardiogram estimated ejection fraction 60%. Mild levo locally thickened aortic valve leaflets are noted but no evidence of aortic insufficiency or stenosis. Tricuspid valve is normal in appearance. With trace physiological tricuspid regurgitation. Estimated pulmonary artery pressure 36 mmHg. History of Present Illness Reviewed the findings of the preventative health visit. Addressed all areas with the patient, patient's family or caregivers. Preventative examinations and testing immunizations - vaccinations, mammograms and DEXA Scan all reviewed and ordered where patient was amenable to the recommendations. Cognitive function see HPI but demonstrated no overall change in cognitive status . Depression addressed and where necessary medications were adjusted or instituted. End of life and living will briefly discussed with patient and where these can be filled out and legally executed. Other blood and imaging studies were ordered if considered necessary. Other recommendations may be found in the encounter note. #1. Essential Hypertension: Stage: Stage I Interval Neurological Complaints no headaches, dizziness, weakness, visual changes, ataxia, aphasia and apraxia. No shortness of breath, orthopnea or cardiovascular symptoms. No other symptoms related to end organ damage. Pressure has been under excellent control. Currently normal. No other end organ symptoms or findings. Therapy reviewed regarding management of hypertension and includes salt restriction and Medication. #2. Type II Hypercholesterolaemia: Currently taking medication and tolerating well. No interval complaints of any muscle pain or arthralgia. No significant liver changes with medications. Last lipid panel: excellent control. Therapy reviewed regarding treatment of cholesterol management and include diet and Crestor. #3. Hx of hypothyroidism currently stable. Heat intolerance: no Fatigue: no Weight gain: no Difficulty concentrating: yes Muscle Symptoms: none Skin Texture: normal Skin Color: normal Currently taking synthroid. #4. Hx of esophageal reflux currently stable. Hx of Complications: none The severity, duration and intensity of symptoms have improved. Frequency: most meals Treatment consists medications taken on Protonix basis. Current therapy includes no medication. There has been no nausea. No change in he frequency or intensity of symptoms. Has had no melena. Has had no . Discussed use of H2 antagonists NA. #5. Chronic pain management for chronic cervical, thoracic and chronic regional pain syndrome Since last examination no significant change since last examination Interval Testing: noneHas tried NSAIDS partial relief requiring additional medication. Pain Description: constant, exacerbated by activity and interferes with enjoyment and ability to perform activities of daily living. Currently seeing or has seen in the past a Barrel Drainer: No .Pain - Enjoyment of Life - General Activity ScalePain on Average: 5Enjoyment of Live: 6General Activity: 5Enjoyment of Life - General Activity Scale: 5Currently regimen consists of Percocet as prescribed with no evidence of abuse or self prescribing. Current Average Morphine Milligram Approximate Equivalent: 22 mg approximated if taking full dosage daily. Recommend: NA.Benzodiazepines or other hypnotics: no.Alternative pain management modalities (acupuncture - behavior therapy- additional PT - SNRIs) have been discussed and have either been tried in the past or not acceptable alternatives to patient or not available in our location. Once again address the possibility that these medications may cause some cognitive impairment at times. Has noticed no cognitive impairment. Instructed to let us know if any of the conditions arise I will need to consider reducing or stopping certain medication.Will kept medications the same.Urine Testing: not indicated and this time.Controlled substance database yes and no discrepancies or [...] heavy machinery and have advised against this. Wellness Evaluation PHQ-2 Score Last Two Weeks Last Two Weeks: 0: Not at all 1: Several Days 2: More than half 3: Almost Every day #1. Little interest or pleasure in doing things: Not At All :Score 0#2. Feeling down, depressed, or hopeless: Not At All :Score 0Score 0FAST Stage: 1 No functional decline Basic ADLS AmbulationNormalGroomingGeneral Personal Hygiene NormalToiletryNormalDressingDresses Without AssistanceEatingFeeds Self Instrumental ADLS Managing Finances YesManaging Health YesShopping YesPreparing Meals YesUsing Technology YesHouse Work YesTaking Care of Pets YesTaking Care Children YesTransportation Yes Additional Topics Advanced DirectivesDeclinedLiving WillDeclined Mini Mental Status Exam OrientationYear 1Season 1Month 1Date 1Day 1Score: 5 LocationCountry 1County 1City 1Facility 1Room 1Score: 5 RegistrationHouse 1Car 1Airplane 1Score: 3 AttentionD 1L 1R 1O 1W 1Score: 5 RecallHouse 1Car 1Airplane 1Score: 3 LanguageWatch 1Pencil 1Score: 2 RepetitionNo ifs, ands or buts 1Score: 1 SentenceWrite a Sentence 1Score: 1 ReadingClose Eyes 1Score: 1 PentagonsCopy Design 0Score: 0 CommandHand 1Fold In Half 1Put Down 1Score: 3 Total Test Score: 29 /30 Normal Possible Functional ImpairmentActivities of Daily Living: Probably NormalCommunication: Probably NormalMemory: Probably Normal Social and Physical Activities Drinking History: NoneExercise 20 Minutes per Week: Yes, most of the timeDifficulty Driving Car: NoOther Problems: None,Falling,Orthostatic,Trouble Eating,Teeth Denture Problems,Problems using Telephone,Tiredness or fatigue Smoking HistoryDoes not smokeCannabis HistoryUsers Oral End Of Wellness Section Active Medication ListSynthroid 100 UG TABLET One Daily For ThyroidCrestor 20 MG TABLET, FILM COATED Once DailyPercocet 325 MG-5 MG (TABLET - ORAL) One Three Times A DayDicyclomine 10 MG (CAPSULE - ORAL) TidAspirin 81 MG TABLET Once DailyNorvasc 5 MG TABLET Once DailyProtonix 40 MG Once DailyBuspirone Hcl 5 MG TABLET Bid Adverse Drug Reactions ReviewedNo Known Adverse Drug Reactions! Vaccination and Immunization ( ) 2000- PNEUMOVAX( ) 2024-06 INFLUENZA( ) 2015-06 PREVNAR 13 GC( ) 2015-06 COVID MODERNA( ) 2024-06 PREVNAR 20Immunizations and Vaccinations Discussed and Implemented if feasible In the Office. Else referred to pharmacies. Surgical History 2020-07 Lt. Cubital [id number] Lt [id number] Lap Zstonrfbfnfyekf2693-05 Splenectomy Preventative Testing ( ) 11/28/2024 Mammogram 11/28/2025( ) 09/17/2024 Albumin 4.6 G/DL N( ) 03/26/2023 Upper Endoscopy( ) 03/26/2023 Colonoscopy ( 5 Years ) 03/26/2028( ) 03/15/2023 DEXA Scan 03/15/2025( ) 12/04/2019 HAIC 5.3 % NPreventative Testing Discussed and Scheduled if Acceptable to Patient Social HistoryDoes not smoke cigarettes. Drinking Hx: < 6 cans of soft drinks per day.Exercise: InfrequentlySexual Hx: Sexually ActiveFamily HistoryMother 67 years oldFather 70 years old1 Brothers 0 Living3 Sisters 3 LivingMother Hx: COPDFather Hx: Ca of LungBrother Hx: ASHD (1) , HTN (1) , Ca of Breast (1) , Ca of Uterus (1) TEST RESULT RANGE UNITSCBC (INCLUDES DIFF/PLT) Date: 09/17/2024WHITE BLOOD CELL COUNT 10.8 3.8-10.8 THOUSAND/ULHEMOGLOBIN 15.3 11.7-15.5 G/DLHEMATOCRIT 46.4 35.0-45.0 %PLATELET COUNT 333 140-400 THOUSAND/ULCOMPREHENSIVE METABOLIC PANEL Date: 09/17/2024SODIUM 142 135-146 MMOL/LPOTASSIUM 4.0 3.5-5.3 MMOL/LGLUCOSE 98 65-99 MG/DLUREA NITROGEN (BUN) 15 7-25 MG/DLCREATININE 0.63 0.50-1.05 MG/DLEGFR 100 > OR = 60 ML/MIN/1.82W8AOMACWP 9.8 8.6-10.4 MG/DLBILIRUBIN, TOTAL 0.4 0.2-1.2 MG/DLALKALINE PHOSPHATASE 88 37-153 U/LAST 24 10-35 U/LALT 20 6-29 U/LLIPID PANEL, STANDARD Date: 5CHOLESTEROL, TOTAL 166 <200 MG/DLHDL CHOLESTEROL 66 > OR = 50 MG/DLTRIGLYCERIDES 90 <150 MG/DLLDL-CHOLESTEROL 82 MG/DL (CALC)T4, FREE Date: 09/17/2024T4, FREE 2.3 0.8-1.8 NG/DLTSH Date: 09/17/2024TSH 0.05 0.40-4.50 MIU/L Raimundo Dunn MD [address] [facility], [facility] [address], [place], [address] , [place] [employer] [facility] 01/12/2025 12:09:59 OBGyn Episode No OBEpisode recorded.
--- OUTSIDE RECORDS SUMMARY | 2025-01-12 12:35 | XMS_ITS | Clinical Summary ---
Author Organization [facility] Address [address] [address] Care Team Providers Care Office Director Name Role Phone Amaury Byrne MD Unavailable Sonido Dunn MD Primary Care Provider Allergies Active Allergy Reactions Criticality Noted Date Comments Pregabalin Vision changes Medium 10/03/2022 Gabapentin Hallucinations Medium 10/03/2022 Medications levothyroxine (SYNTHROID) 175 mcg tablet Take 1 tablet (175 mcg total) by mouth political science professor before breakfast Active oxyCODONE-acetam inophen (PERCOCET) [...] (10/03/2022): Added automatically from request for surgery [id number] NSTEMI (non-ST elevated myocardial infarction) 0 10/03/2022 [...] this topic Medical Devices Implanted Type Area Sight Effects Specialist Device Identifier Shelf Expiration Date Model / Serial / Lot [employer] Mobile Mynxgrip 6-7fr Balloon Catheter Integrate Sealant Lock Latex Free [id number] - [id number] Implanted:Qty: 1 on 10/03/2022 by Amaury Byrne MD at [facility] 05/24/2024 [id number] / / [id number] Insurance MEDICARE [facility] MED[facility] Address: [place] [address] MEDICARE [facility]ANTAGE [facility] MED[facility] Address: [place] [address] MEDICARE ADVANTAGE Advance Directives For more information, please contact: [phone] * Full Code (Latest Code Status on File) Date Activated Date Inactivated Comments 10/03/2022 3:37 PM 10/04/2022 9:08 PM * Full Code Date Activated Date Inactivated Comments 10/03/2022 2:12 PM 10/03/2022 3:37 PM Care Teams Office Director Relationship Specialty Start Date End Date Sonido Dunn MD [address] [facility] [place] [address] PCP - General Internal Medicine 10/04/22 Amaury Byrne MD [address] [place] [address] Consulting Physician Cardiovascular Disease 10/04/22
--- OUTSIDE RECORDS SUMMARY | 2025-01-12 12:35 | XMS_ITS | Referral Summary ---
Author Organization [facility] Address [address] [address] Care Team Providers Care Framing Inspector Name Role Phone Amaury Byrne MD Unavailable Sonido Dunn MD Primary Care Provider Allergies Active Allergy Reactions Criticality Noted Date Comments Pregabalin Vision changes Medium 10/03/2022 Gabapentin Hallucinations Medium 10/03/2022 Medications levothyroxine (SYNTHROID) 175 mcg tablet Take 1 tablet (175 mcg total) by mouth strip cleaner before breakfast Active oxyCODONE-acetam inophen (PERCOCET) 5-325 [...] (10/03/2022): Added automatically from request for surgery [id number] NSTEMI (non-ST elevated myocardial infarction) 0 10/03/2022 [...] on file Medical Devices Implanted Type Area Annealer Device Identifier Shelf Expiration Date Model / Serial / Lot [facility] Mynxgrip 6-7fr Balloon Catheter Integrate Sealant Lock Latex Free [id number] - [id number] Implanted:Qty: 1 on 10/03/2022 by Amaury Byrne MD at [facility] 05/24/2024 [id number] / / [id number] Insurance * Guarantor: Mayra Lyons Account Type Relation to Patient Date of Phone Billing Address Personal/Family Self [address] [place] [address] [facility] MEDICARE ADVANTAGE [facility] [address] MEDICARE ADVANTAGE Advance Directives For more information, please contact: [phone] * Full Code (Latest Code Status on File) Date Activated Date Inactivated Comments 10/03/2022 3:37 PM 10/04/2022 9:08 PM * Full Code Date Activated Date Inactivated Comments 10/03/2022 2:12 PM 10/03/2022 3:37 PM Care Teams Framing Inspector Relationship Specialty Start Date End Date Sonido Dunn MD [address] [facility] [address] [place] [address] PCP - General Internal Medicine 10/04/22 Amaury Byrne MD [address] [place] [address] Consulting Physician Cardiovascular Disease 10/04/22
--- OUTSIDE RECORDS SUMMARY | 2025-01-12 12:36 | XMS_ITS | Continuity of Care Document ---
Author Organization [place] [facility] [email or web address] [facility]_G Internal Med [facility] 24 [address] [facility] [address] [place] [address] Care Team Providers Care Counter Clerk [employer] Name Role Phone RAIMUNDO DUNN Primary Care Provider RAIMUNDO DUNN Referring Provider Assessment No assessment recorded. Plan of Treatment Reminders Order Date Submit Date Provider Last Modified By Organization Details Last Modified Time Details Appointments Any 10 025 10:30AM Raimundo Dunn MD Not available Not available Not available Lab None record ed. Referral None record ed. Procedures None record ed. Surgeries None record ed. Imaging None record ed. Medication Orders None record ed. Patient TargetsNo targets recorded. Patient InstructionsNo instructions recorded. Reason for Referral None Reported. Problems Name Problem SNOMED Code Status Onset Date Resolution Date Notes Provider Name and Address Organization Details Recorded Time Spinal enthesopa thy 09755428 Active Not Available [facility] 3 03:21:52 Irritable bowel syndrome 20828656 Active Not Available [facility] 3 03:21:52 Disorder of sacrum 51076899 Completed Not Available [facility] 3 03:21:52 Acquired trigger finger 1175574 Active Not Available [facility] 3 03:21:52 Neuralgia 28216282 Completed Not Available [facility] 3 03:21:52 Localized , primary osteoarth ritis of the hand 992348099 Active Not Available [facility] 3 03:21:52 Abdominal pain 56347821 Active Not Available [facility] 3 03:21:52 Gastroeso phageal reflux disease 967203872 Active Not Available [facility] 3 03:21:52 Localized , primary osteoarth ritis of the wrist 997872913 Active Not Available [facility] 3 03:21:53 Depressiv e disorder 21411386 Active Not Available [facility] 3 03:21:53 Hypothyro idism 99363772 Active Not Available [facility] 3 03:21:53 Residual foreign body in soft tissue 4489063 Completed Not Available [facility] 3 03:21:53 Disorder of coccyx 69330897 Completed Not Available [facility] 3 03:21:53 Pain of elbow region 25533237 Completed Not Available [facility] 3 03:21:53 Hyperchol esterolem ia 47455058 Active 2016 Not Available [facility] 3 03:21:52 Kidney stone 25417919 Active 2016 Not Available [facility] 3 03:21:54 Chronic pain syndrome 520272013 Active 2018 Not Available [facility] 3 03:21:53 Complex regional pain syndrome of upper limb 311123514 Active 2018 Not Available [facility] 3 03:21:53 Fracture of metacarpa l bone 750981962 Active 2019 Not Available [facility] 3 03:21:52 Renewal of prescript ion Active 2021 Not Available [facility] 3 03:21:52 Ulnar nerve entrapmen t at elbow 097278041 Active 2021 Not Available [facility] 3 03:21:52 Impingeme nt syndrome of left shoulder region 99516193412 9104 Active 2021 Not Available [facility] 3 03:21:52 Acute urinary tract infection 368389490 Active 2021 Not Available [facility] 3 03:21:53 Dysuria 89094447 Active 2021 Not Available [facility] 3 03:21:53 Contact dermatiti s caused by urushiol from [facility] carmelita 039715247 Active 2021 Not Available [facility] 3 03:21:52 Vitamin D deficienc y 64805216 Active 2021 Not Available [facility] 3 03:21:53 Nodular fasciitis 847706003 Active 2022 MELIDA Welch, [facility] 3 10:56:55 Essential hypertens ion 87150059 Active 2022 Raimundo Dunn MD [address], [place], [address] , [facility] 3 10:47:46 Fractured nasal bones 864030507 Active 2022 Raimundo Dunn MD [address], [place], [address] , [facility] 3 16:48:30 Senile osteoporo sis 22465133 Active 2022 Ada cuellar, [facility] 3 10:46:53 Eczema 33579396 Active 2024 Raimundo Dunn MD [address], [place], [address] , [facility] 5 11:44:46 Acute pain in face 363391167 Active 2024 Ada Aaron cuellar, [facility] 5 12:12:01 Neck pain 08569145 Active 2024 [facility] 12:13:16 Notes:Some problems listed i n Documents: #[id number], #[id number], #[id number], #[id number] could not be added to this patient's chart. Please review these documents and add these problems to the patient's chart manually as needed. Problem Notes None recorded. Procedures Surgical History Date Name Laterality Status Provider Name and Address Organization Details Recorded Time 08/23/19 24 Medicare Wellness CPT Code, subsequent completed Jossie Morley RN [facility] 08/23/2023 10:50:05 05/03/20 21 Most Recent Bone Density completed Not Available [facility] 08/23/2022 03:14:17 06/12/20 20 Date of Last Colonoscopy completed Not Available [facility] 08/23/2022 03:14:17 Imaging Results None recorded. Procedure Notes None recorded. Medical Equipment None Reported. Allergies Allergen ID Allergen Name Allergen Category Reaction Reaction Severity Criticality Documentation Date Start Date Code Code System Note Provider Name and Address Organization Details Recorded Time 6232 Neurontin medicatio n hallucina tions Not available Not available 08/23/2022 40614 8 RxNorm Not Available [facility] 03:34:08 Medications Name Sig Start Date Stop [...] administe red by the provider 04/20 completed [facility]: 0003- 0494- 20 Not Available Not Available [...] administe red by the provider 04/20 completed [facility]: 0409- 4276- 17 Not Available Not Available Not Available Vitals Date Recorded Body height Body mass index (BMI) Body weight Heart rate Body temperature Oxygen saturation Oxygen saturation in Arterial blood by Pulse oximetry Systolic And Diastolic Provider Name and Address Organization Details Last Updated DateTime 5 160.02 cm 24.3 kg/m2 22984.1 5 g 84 /min 97 [degF] 97 % 97 % 120/78 mm[Hg] April Bello [place] [facility] 5 11:43:01 Social History Question Answer Notes LastModified by Organizat ion Details LastModified Time Tobacco Smoking Status Unknown If Ever Smoked Not Available [facility] 08/23/2022 03:02:51 Do You Have An Advance Directive? No [email or web address] Information not available 08/23/2023 In The 14 Days Before Symptom Onset, Have You Had Close Contact With A Laboratory-confi rmed COVID-19 While That Case Was Ill? No [id number] Information not available 08/23/2022 In The 14 Days Before Symptom Onset, Have You Had Close Contact With A Person Who Is Under Investigation For COVID-19 While That Person Was Ill? No [id number] Information not available 08/23/2022 What Type Of Diet Are You Following? REGULAR [email or web address] Information not available 08/23/2023 Have There Been Any Changes To Your Family Or Social Situation? No [email or web address] Information not available 08/23/2023 What Is The Fluoride Status Of Your Home? Unknown [email or web address] Information not available 08/23/2023 Where Do You Live? SingleLevelHouse [email or web address] Information not available 08/23/2023 Are You Able To Care For Yourself? Yes [email or web address] Information not available 08/23/2023 Are You Blind Or Do Yo Have Difficulty Seeing? No [email or web address] Information not available 08/23/2023 Are You Deaf Or Do You Have Serious Difficulty Hearing? No [email or web address] Information not available 08/23/2023 Live Alone Of With Others? With Others [email or web address] Information not available 08/23/2023 Do You Have A Medical Power Of Nylon Machine Operator? No [email or web address] Information not available 08/23/2023 What Was The Date Of Your Most Recent Tobacco Screening? 08/23/2023 [email or web address] Information not available 08/23/2023 Do You Have Any Pets? Yes [email or web address] Information not available 08/23/2023 Do You Use Your Seat Belt Or Car Seat Routinely? Yes [email or web address] Information not available 08/23/2023 Do You Have Smoke And Carbon Monoxide Detectors In Your Home? Yes [email or web address] Information not available 08/23/2023 Have You Recently Traveled Abroad? No [id number] Information not available 08/23/2022 Sex: Unknown Functional Status Question Answer Note LastModified by Organizat ion Details LastModified Time What is your level of alcohol consumption? Occasional [id number] Information not available 08/23/2022 What is your exercise level? Occasional [email or web address] Information not available 08/23/2023 Mental Status None recorded. Family History Relationship Description Onset Age of this Age Resolved Age Notes LastModified by Organization Details LastModified Time Father Family history of malignant neoplasm MIGRATION.700 [id number] Not available 08/23/2022 03:14:23 Father Diabetes mellitus [id number].216 [id number] Not available 08/23/2022 03:14:23 Mother Hypertensive disorder MIGRATION.625 [id number] Not available 08/23/2022 03:14:23 Sister Complication of anesthesia MIGRATION.008 [id number] Not available 08/23/2022 03:14:23 Notes:Mother 67 yea [...] HAVE YOU BEEN HOSPITALIZED OR SEEN IN [facility] IN THE PAST YEAR ? Y ATHEROSCLEROSIS [...] Details Recorded Time Pneumococcal conjugate PCV20, polysaccharide OWD918 conjugate, adjuvant, PF 5 completed YUE Wetzel [place] [employer] [facility] 08/08/2024 12:13:23 COVID-19, mRNA, LNP-S, PF, 100 mcg/0.5mL dose or 50 mcg/0.25mL dose 1 completed Not Available [facility] 12/11/2022 08:42:19 COVID-19, mRNA, LNP-S, PF, 100 mcg/0.5mL dose or 50 mcg/0.25mL dose 1 completed Not Available [facility] 12/11/2022 08:42:19 Influenza, split virus, quadrivalent, preservative 8 completed Not Available [facility] 12/11/2022 08:42:19 pneumococcal polysaccharide PPV23 1 completed Not Available [facility] 12/11/2022 08:42:19 Influenza, split virus, quadrivalent, PF 8 completed Not Available [facility] 12/11/2022 08:42:19 Influenza, split virus, quadrivalent, PF 2 completed Not Available [facility] 12/11/2022 08:42:19 Influenza, split virus, quadrivalent, PF 1 completed Not Available [facility] 12/11/2022 08:42:19 Influenza, split virus, quadrivalent, PF 0 completed Not Available [facility] 12/11/2022 08:42:19 Pneumococcal conjugate PCV 13 6 completed Not Available [facility] 12/11/2022 08:42:19 Past Encounters Encounter ID Performer Location Encounter Start Date Encounter Closed Date Diagnosis/Indication Diagnosis SNOMED-CT Code Diagnosis ICD10 Code Diagnosis Note [id number] Raimundo Dunn MD S_[facility] Internal Med [facility] [address] [facility] [address] [place] [address] 01/12/2025 11:33:54 01/12/2025 12:11:18 Complex regional pain syndrome of upper limb 940275059 M79.601 Essential hypertension 04256351 I10 Hypothyroidism 01727216 E03.9 Hypercholesterolemia 136 45711 E78.00 Gastroesop hageal reflux disease 926771348 K21.9 General ex amination of patient 397420581 Z00.00 Health Concerns Section Related Observation LastModified by Organization Detai ls LastModified Time None Recorded Concern Status LastModified by Organization Details LastModified Time None Recorded Payers Encounter Date Sequence Insurance Name Policy Number Policy Saldaña Covered Member ID Saldaña Member ID Guarantor Name 01/12/2025 1 [facility]IC[facility] SOLUTIONS - MEDICARE COMPLETE (MEDICARE REPLACEMENT HMO) [id number] Mayra Lyons [id number] Mayra Lyons Notes Date Note Type Note Provider Name and Address Organization Details Recorded Time 025 text/ht ml Patient Name: Mayra LyonsDate Of Service: Sunday ( 01.12.2025 ): 1960 [...] Systemic Symptoms:none Medication Reconciliation: from medication list. Nukwvoxwrwn06/02/2023: Upper endoscopy failed to disclose any significant [...] or has seen in the past a Staff Nuclear Weapons Officer: No .Pain - Enjoyment of Life - [...] Drug Reactions! Vaccination and Immunization ( ) 2001-04 PNEUMOVAX( ) 2024-06 INFLUENZA( ) 2015-06 PREVNAR 13 GC( ) 2015-06 COVID MODERNA( ) 2024-06 PREVNAR 20Immunizations and Vaccinations Discussed and Implemented if feasible In the Office. Else referred to pharmacies. Surgical History 2020-07 Lt. Cubital Oqpkch5768-50 Lt [id number] Lap Jwpjgsgbnoqumsz0453-67 Splenectomy Preventative Testing ( ) 11/28/2024 Mammogram [...] 0.50-1.05 MG/DLEGFR 100 > OR = 60 ML/MIN/1.68T1HJJMNMJ 9.8 8.6-10.4 MG/DLBILIRUBIN, TOTAL 0.4 0.2-1.2 MG/DLALKALINE PHOSPHATASE 88 37-153 U/LAST 24 10-35 U/LALT 20 6-29 U/LLIPID PANEL, STANDARD Date: 09/17/2024HOLESTEROL, TOTAL 166 <200 MG/DLHDL CHOLESTEROL 66 > OR = 50 MG/DLTRIGLYCERIDES 90 <150 MG/DLLDL-CHOLESTEROL 82 MG/DL (CALC)T4, FREE Date: 09/17/2024T4, FREE 2.3 0.8-1.8 NG/DLTSH Date: 09/17/2024TSH 0.05 0.40-4.50 MIU/L Raimundo Dunn MD [address] [facility], [facility] [address], [place], [address] , [place] [facility] 01/12/2025 12:09:59 OBGyn Episode No OBEpisode recorded.
== END 2025-01-12 12:29 | disposition home or self-care (01) ==
PROVIDERS: PCP Internal Medicine; Visit Provider Internal Medicine
DX: R51.9 Headache, unspecified (principal); M47.892 Other spondylosis, cervical region
CPT/HCPCS: 70150; 72040